=== PATIENT | male | born 1960 | race Two or more races ===

== ENCOUNTER 2020-04-10 11:31 | Emergency (ER) | payer OTHER ==
[~2020-04-10] VITALS: Ht 152.4 cm; Wt 63.5 kg
--- NOTE | 2020-04-10 12:11 | NUR ---
SEEN BY DR CASEY,GARCIA F16 INSERTED ASEPTICALLY,TOLERATED WELL
[2020-04-10] MEDS ORDERED: TAMSULOSIN 0.4 MG CAP.SR.24H PO ONE (12:30)
[2020-04-10] MEDS ORDERED: TAMSULOSIN 0.4 MG CAP.SR.24H ONE (12:32)
[2020-04-10 13:25] LABS: BILIRUBIN,URINE NEGATIVE (NEGATIVE); COLOR,URINE YELLOW (YELLOW); LEUKOCYTE ESTERASE ,URINE NEGATIVE (NEGATIVE); NITRITE, URINE NEGATIVE (NEGATIVE); PROTEIN,URINE NEGATIVE (NEGATIVE); UGLUCOSE NEGATIVE (NEGATIVE); UROBILINOGEN,URINE 0.2 EU/dL (0.2)
[2020-04-10 13:38] LABS: BACTERIA,URINE Rare /HPF (None Seen); RBC,URINE 21-50 /HPF (0-2); SQUAMOUS EPITHELIAL CELL,UR Rare /HPF (None Seen); WBC,URINE 0-2 /HPF (0-3)
--- NOTE | 2020-04-10 13:59 | NUR ---
CHANGED GARCIA CATHETER TO LEG BAG
[2020-04-10 14:29] VITALS: BP 127/104
--- NOTE | 2020-04-10 14:29 | NUR ---
Patient discharged to home in stable condition. Written and verbal after care instructions given. Patient verbalizes understanding of instruction.
== END 2020-04-10 14:30 | disposition home or self-care (01) ==
LOC: ER 11:34
DX: R33.9 Retention of urine, unspecified (principal); E78.00 Pure hypercholesterolemia, unspecified; Z86.73 Personal history of transient ischemic attack (TIA), and cerebral infarction without residual deficits
CPT/HCPCS: 81001; 87086-TC

== ENCOUNTER 2020-04-14 17:35 | Emergency (ER) | payer OTHER ==
[~2020-04-14] VITALS: Ht 175.3 cm; Wt 78.0 kg
[2020-04-14] MEDS ORDERED: LIDOCAINE 2% JEL UROJET 10 ML MM ONE ×2 (17:54→18:00)
--- NOTE | 2020-04-14 18:22 | NUR ---
GARCIA CATH INSERTED WEDNESDAY, PT C/O BLEEDING AND LEAKING ON THE CATHETER. PT AAOX4, VSS. RR EVEN & UNLABORED. PT SEEN & EVAL'D BY BRISEIDA NAJERA. WILL CONT TO MONITOR.
[2020-04-14 18:50] LABS: BASOPHILS # (AUTO) 0.1 /CMM (0.0-0.2); BASOPHILS % (AUTO) 0.6 % (0.0-2.0); EOSINOPHILS % (AUTO) 12.8 % (0.0-6.0); HEMATOCRIT 46 % (39-51); HEMOGLOBIN 15.3 g/dL (13.5-17.5); LYMPHOCYTES # (AUTO) 3.4 /CMM (0.8-4.8); LYMPHOCYTES % (AUTO) 30.4 % (20.0-44.0); MEAN CORPUSCULAR HGB CONC 34 g/dl (31.0-36.0); MEAN CORPUSCULAR VOLUME 86 fL (80-96); MONOCYTES # (AUTO) 0.8 /CMM (0.1-1.30); MONOCYTES % (AUTO) 7.2 % (2.0-12.0); NEUTROPHILS # (AUTO) 5.5 /CMM (1.8-8.9); PLATELET COUNT (AUTO) 188 /CMM (150-450); RED BLOOD CELL COUNT(AUTO) 5.33 MIL/uL (4.5-6.0); WHITE BLOOD COUNT (AUTO) 11.1 K/uL (4.3-11.0)
[2020-04-14 19:04] LABS: CALCIUM, SERUM 9.5 mg/dL (8.5-10.1); POTASSIUM 5.1 mmol/L (3.5-5.1)
[2020-04-14 19:10] LABS: ALBUMIN 3.9 g/dL (3.4-5.0); BILIRUBIN,TOTAL 0.4 mg/dL (0.2-1.0); TOTAL PROTEIN, SERUM 7.9 g/dL (6.4-8.2)
--- NOTE | 2020-04-14 19:32 | NUR ---
CHANGED GARCIA CATH TO 20FR & IRRIGATED WITH 500 ML OF STERILE WATER. BLOOD CLOTS CAME OUT & CONTINUOUS IRRIGATION UNTIL IT TURNED TO BRIGHT PINK, PT ROBERT WELL. BRISEIDA NAJERA MADE AWARE.
[2020-04-14 19:44] LABS: COLOR,URINE RED (YELLOW)
[2020-04-14 19:57] LABS: RBC,URINE TOO NUMEROUS TO COUN /HPF (0-2)
[2020-04-14 19:58] LABS: WBC,URINE 21-50 /HPF (0-3)
[2020-04-14 19:59] LABS: BACTERIA,URINE 2+ /HPF (None Seen); SQUAMOUS EPITHELIAL CELL,UR 0-2 /HPF (None Seen)
--- NOTE | 2020-04-14 20:21 | NUR ---
Patient discharged to home in stable condition. Written and verbal after care instructions given. Patient verbalizes understanding of instruction.
[2020-04-14 20:22] VITALS: BP 135/85
[2020-04-14] MEDS ORDERED: CEPHALEXIN MONOHYDRATE 500 MG CAPSULE PO ONE (20:30)
== END 2020-04-14 20:23 | disposition home or self-care (01) ==
LOC: ER 17:38
DX: T83.031A Leakage of indwelling urethral catheter, initial encounter (principal); N39.0 Urinary tract infection, site not specified; R31.9 Hematuria, unspecified; E78.00 Pure hypercholesterolemia, unspecified; Z86.73 Personal history of transient ischemic attack (TIA), and cerebral infarction without residual deficits
CPT/HCPCS: 36415; 51702; 80053; 81001; 85025; 87086; 99284; A4217; J3490

== ENCOUNTER 2021-09-29 09:10 | Inpatient (IN) | payer OTHER ==
[~2021-09-29] VITALS: Ht 170.2 cm; Wt 76.7 kg
[2021-09-29] MEDS ORDERED: CEFTRIAXONE 1GM BAG (ER ONLY) 50 ML IV ONE ×2 (09:19→09:30)
[2021-09-29] MEDS ORDERED: AMLO2.5T4 PO (09:20)
[2021-09-29] MEDS ORDERED: APIX5TAB PO (09:20)
[2021-09-29] MEDS ORDERED: TAMS-12 PO (09:20)
[2021-09-29] MEDS ORDERED: EZET10TA32 PO (09:20)
--- NOTE | 2021-09-29 09:20 | NUR ---
[id number] FROM HOME W/ C/O FEVER SINCE LAST NIGHT AND RLQ PAIN UPON WAKING UP THIS AM. PT A/O X4, VERBALLY RESPONSIVE. TO ER BED 7.
[2021-09-29] MEDS ORDERED: IV NS 0.9% 1,000 ML BAG IV ONE (09:30)
--- NOTE | 2021-09-29 09:30 | NUR ---
urine and covid swab collected and sent to lab.
--- NOTE | 2021-09-29 09:35 | NUR ---
IV LINE ESTABLISHED ON LAC #18, BLOOD DRAWN AND SENT TO LAB.
[2021-09-29 09:43] LABS: BASOPHILS % (AUTO) 0.2 % (0.0-2.0); HEMATOCRIT 44 % (39-51); HEMOGLOBIN 14.6 g/dL (13.5-17.5); LYMPHOCYTES # (AUTO) 1.9 K/uL (0.8-4.8); LYMPHOCYTES % (AUTO) 14.2 % (20.0-44.0); MEAN CORPUSCULAR HGB CONC 33 g/dl (31.0-36.0); MEAN CORPUSCULAR VOLUME 84 fL (80-96); MONOCYTES # (AUTO) 0.4 K/uL (0.1-1.30); MONOCYTES % (AUTO) 2.7 % (2.0-12.0); NEUTROPHILS # (AUTO) 10.9 K/uL (1.8-8.9); NEUTROPHILS % (AUTO) 79.9 % (43.0-81.0); PLATELET COUNT (AUTO) 190 K/uL (150-450); WHITE BLOOD COUNT (AUTO) 13.7 K/uL (4.3-11.0)
--- NOTE | 2021-09-29 09:45 | NUR ---
SEAMER OPERATOR AT BEDSIDE FOR XRAY
[2021-09-29 09:46] LABS: BILIRUBIN,URINE NEGATIVE (NEGATIVE); COLOR,URINE DARK YELLOW (YELLOW); LEUKOCYTE ESTERASE ,URINE NEGATIVE (NEGATIVE); NITRITE, URINE NEGATIVE (NEGATIVE); PH,URINE 5.5 (5.0-8.0); PROTEIN,URINE 100 mg/dl (NEGATIVE); UGLUCOSE NEGATIVE (NEGATIVE); UROBILINOGEN,URINE 0.2 EU/dL (0.2)
[2021-09-29 10:05] LABS: CALCIUM, SERUM 8.4 mg/dL (8.5-10.1); CARBON DIOXIDE 23 mmol/L (21-32); CHLORIDE 101 mmol/L (98-107); CREATININE 1.1 mg/dL (0.6-1.3); GLUCOSE 139 mg/dL (74-106); POTASSIUM 3.9 mmol/L (3.5-5.1); SODIUM SERUM 136 mmol/L (136-145); UREA NITROGEN, BLOOD 21 mg/dL (7-18)
[2021-09-29 10:11] LABS: ALANINE AMINOTRANSFERASE 24 U/L (12-78); ALBUMIN 3.6 g/dL (3.4-5.0); ALKALINE PHOSPHATASE 98 U/L (46-116); ASPARTATE AMINOTRANSFERASE 23 U/L (15-37); BILIRUBIN,DIRECT 0.2 mg/dL (0.0-0.2); BILIRUBIN,TOTAL 1.3 mg/dL (0.2-1.0); TOTAL PROTEIN, SERUM 7.6 g/dL (6.4-8.2)
--- NOTE | 2021-09-29 10:36 | NUR ---
DR. HILL MADE AWARE OF PT'S LAC ACID 3.1.
[2021-09-29 10:37] LABS: BACTERIA,URINE None seen /HPF (None Seen); RBC,URINE 21-50 /HPF (0-2); SQUAMOUS EPITHELIAL CELL,UR Rare /HPF (None Seen)
--- NOTE | 2021-09-29 10:46 | NUR ---
CALLED NURSING SUP REGARDING PT BED
--- NOTE | 2021-09-29 10:50 | NUR ---
room 108
--- NOTE | 2021-09-29 11:01 | NUR ---
report given to Alexsandra EISENBERG to continue care.
--- NOTE | 2021-09-29 11:40 | NUR ---
RECEIVED A KHMER SPEAKING PATIENT FROM ED VIA [facility]. PATIENT'S ADMITTING DIAGNOSES ARE SEPSIS AND NSTEMI. PATIENT IS ON RA WITH OXYGEN SATURATION OF 98%. BREATHING EVEN AND UNLABORED. NO SOB NOTED. PATIENT IS ALERT AND ORIENTED X 4. ON SR WITH HR OF 68. IV ACCESS NOTED ON LEFT AC # 18, PATENT, INTAC, FLUSHING WELL. NO S/S OF INFILTRATION. SKIN IS INTACT, WARM AND DRY TO TOUCH. ALL SAFETY MEASURES IN PLACE. BED LOCKED AND IN LOWEST POSITION. CALL LIGHT WITHIN REACH AND HOB ELEVATED. WILL CONTINUE TO MONITOR THROUGHOUT SHIFT
[2021-09-29 12:00] VITALS: BP 110/58
[2021-09-29] MEDS ORDERED: ONDANSETRON HCL/PF 4 MG/2 ML VIAL IVP PRN (14:00)
[2021-09-29] MEDS ORDERED: Z GUARD REMEDY 4 OZ OINT TP PRN (14:00)
[2021-09-29] MEDS ORDERED: MAGNESIUM HYDROXIDE 30 ML UDC PO PRN (14:00)
[2021-09-29] MEDS ORDERED: ZOLPIDEM TARTRATE 5 MG TABLET PO PRN (14:00)
[2021-09-29] MEDS ORDERED: HYDROCODONE/APAP 5/325MG TABLET PO PRN (14:00)
[2021-09-29] MEDS ORDERED: MAG HYDROX/AL HYDROX/SIMETH 30 ML UDC PO PRN (14:00)
[2021-09-29 16:00] VITALS: BP 118/54
[2021-09-29] MEDS: IV NS 0.9% 1,000 ML IV PRN (17:51)
--- NOTE | 2021-09-29 19:02 | NUR ---
CLOSING NOTES: PATIENT IN BED, AWAKE ALERT AND ORIENTED X 4 WITH AT BEDSIDE. PATIENT DENIES ANY PAIN OR DISCOMFORT AT THIS TIME. ON RA WITH OXYGEN SATURATION OF 95%, NO S/S OF SOB, AND NO RESPIRATORY DISTRESS NOTED. IV LINE ON LEFT AC INFUSING WITH NS @ 125 ML/HR, NO INFILTRATION NOTED ON THE SITE. ALL NEEDS ANTICIPATED. KEPT PATIENT CLEAN AND DRY AT ALL TIMES. SAFETY MEASURES IN PLACE. SR UP, HOB ELEVATED, CALL LIGHT WITHIN REACH. WILL ENDORSE TO PSYCHOLOGIST PERSONNEL FOR CRISPIN.
--- NOTE | 2021-09-29 19:31 | NUR ---
INTERNET TECHNOLOGY MANAGER OPENING NOTES: RECEIVED PATIENT IN BED, AWAKE, ALERT, AND ORIENTED X 4 HEBREW SPEAKING. ABLE TO MAKE NEEDS KNOWN, PATIENT DENIES ANY PAIN OR DISCOMFORT AT THIS TIME. ON RA, TOLERATING WELL, BREATHING EVEN AND UNLABORED AND NO RESPIRATORY DISTRESS NOTED. IV LINE ON LEFT AC INFUSING WITH NS @ 125 ML/HR, NO INFILTRATION NOTED ON THE SITE. ALL NEEDS ANTICIPATED. SAFETY MEASURES IN PLACE, HOB ELEVATED, CALL LIGHT WITHIN REACH. BED IN LOWEST AND LOCKED POSITION, WILL CONTINUE TO MONITOR THROUGHOUT THE SHIFT.
[2021-09-29 20:00] VITALS: BP 148/60
[2021-09-29] MEDS: ASPIRIN EC 325 MG TABLET.DR PO SCH (20:29)
[2021-09-29] MEDS: ACETAMINOPHEN 325 MG TABLET PO PRN (20:29)
[2021-09-29] MEDS: METOPROLOL TARTRATE 25 MG TABLET PO SCH (20:30)
[2021-09-29] MEDS: ENOXAPARIN SODIUM 80 MG/0.8 ML DISP.SYRIN SQ SCH (20:38)
--- NOTE | 2021-09-29 21:30 | NUR ---
2129 Dr. Hidalgo came and examined patient with new order made.
--- NOTE | 2021-09-29 21:30 | NUR ---
RN NOTE DR ROSANGELA SIDDIQUI (UROLOGIST) AT BEDSIDE, DISCUSSED TX PLAN TO PT, NNO, CONTINUE MONITORING PT I&O.
[2021-09-29] MEDS ORDERED: GENTAMICIN 80 MG/2 ML VIAL IV SCH (22:00)
[2021-09-29] MEDS ORDERED: GENTAMICIN 80 MG in IV D5W 50 ML IV ONE (22:00)
[2021-09-29] MEDS ORDERED: GENTAMICIN 80 MG/2 ML VIAL ONE (22:58)
[2021-09-30] VITALS: BP 111/57
[2021-09-30 04:00] VITALS: BP 128/66
[2021-09-30] MEDS: IV NS 0.9% 1,000 ML IV PRN (04:21)
--- NOTE | 2021-09-30 05:11 | NUR ---
RN NOTE OBTAINED NEW IV ACCESS ON RFA #22G. RUNNING NS AT 125 ML/HR.
--- NOTE | 2021-09-30 06:49 | NUR ---
RENTAL CAR FERRY DRIVER CLOSING NOTES: PATIENT RESTING IN BED. A/O X 4 FRISIAN SPEAKING. ABLE TO MAKE NEEDS KNOWN, PATIENT DENIES ANY PAIN OR DISCOMFORT AT THIS TIME. ON RA, TOLERATING WELL, BREATHING EVEN AND UNLABORED AND NO RESPIRATORY DISTRESS NOTED. IV ACCESS ON LEFT AC AT RFA #22G INFUSING WITH NS @ 125 ML/HR, NO INFILTRATION NOTED ON THE SITE. ALL NEEDS ANTICIPATED. ALL DUE MEDS GIVEN, SAFETY MEASURES IN PLACE, HOB ELEVATED, CALL LIGHT WITHIN REACH. BED IN LOWEST AND LOCKED POSITION, WILL ENDORSE TO AM SHIFT NURSE.
[2021-09-30 07:28] LABS: BASOPHILS % (AUTO) 0.4 % (0.0-2.0); EOSINOPHILS % (AUTO) 3.8 % (0.0-6.0); HEMATOCRIT 40 % (39-51); HEMOGLOBIN 13.2 g/dL (13.5-17.5); LYMPHOCYTES # (AUTO) 1.7 K/uL (0.8-4.8); LYMPHOCYTES % (AUTO) 12.9 % (20.0-44.0); MEAN CORPUSCULAR HGB CONC 33 g/dl (31.0-36.0); MEAN CORPUSCULAR VOLUME 84 fL (80-96); MONOCYTES % (AUTO) 7.9 % (2.0-12.0); NEUTROPHILS # (AUTO) 9.8 K/uL (1.8-8.9); PLATELET COUNT (AUTO) 160 K/uL (150-450); RED BLOOD CELL COUNT(AUTO) 4.71 MIL/uL (4.5-6.0)
--- NOTE | 2021-09-30 07:32 | NUR ---
RN OPENING NOTES: PATIENT RESTING IN BED. A/O X 4 VIETNAMESE SPEAKING. ABLE TO MAKE NEEDS KNOWN, PATIENT DENIES ANY PAIN OR DISCOMFORT AT THIS TIME. ON RA, TOLERATING WELL, BREATHING EVEN AND UNLABORED AND NO RESPIRATORY DISTRESS NOTED. ATTACHED TO EXTERNAL MONITOR, READING SINUS RHYTHM TO SINUS STEFANI. IV ACCESS ON LEFT AC AT RFA #22G INFUSING WITH NS @ 125 ML/HR, NO INFILTRATION NOTED ON THE SITE. SAFETY MEASURES IN PLACE, HOB ELEVATED, CALL LIGHT WITHIN REACH. BED IN LOWEST AND LOCKED POSITION, WILL CONTINUE PLAN OF CARE AND ANTICIPATE NEEDS.
[2021-09-30 08:00] VITALS: BP 136/65
[2021-09-30] MEDS: GENTAMICIN 80 MG in IV D5W 50 ML IV SCH ×3 (08:26→23:08)
[2021-09-30] MEDS: ASPIRIN EC 325 MG TABLET.DR PO SCH (08:26)
[2021-09-30] MEDS: EZETIMIBE 10 MG TABLET PO SCH (08:27)
[2021-09-30] MEDS: PANTOPRAZOLE 40 MG TABLET.DR PO SCH (08:27)
[2021-09-30] MEDS: AMLODIPINE BESYLATE 2.5 MG TABLET PO SCH (08:27)
[2021-09-30] MEDS: METOPROLOL TARTRATE 25 MG TABLET PO SCH ×2 (08:27→20:30)
[2021-09-30] MEDS: TAMSULOSIN 0.4 MG CAP.SR.24H PO SCH (08:27)
[2021-09-30] MEDS: ENOXAPARIN SODIUM 80 MG/0.8 ML DISP.SYRIN SQ SCH (08:36)
[2021-09-30 09:01] LABS: CALCIUM, SERUM 8.2 mg/dL (8.5-10.1); CREATININE 0.8 mg/dL (0.6-1.3); MAGNESIUM 1.8 mg/dL (1.8-2.4); PHOSPHORUS 2.8 mg/dL (2.5-4.9); POTASSIUM 3.8 mmol/L (3.5-5.1)
[2021-09-30] MEDS: CEFTRIAXONE 1 G in IV D5W 50 ML IV SCH (09:23)
[2021-09-30 10:21] LABS: THYROID STIMULATING HORMONE 1.063 uIU/mL (0.358-3.74)
[2021-09-30 12:00] VITALS: BP 133/65
[2021-09-30] MEDS: VANCOMYCIN 1.25 GM in IV D5W 250 ML IV SCH (13:53)
[2021-09-30] MEDS: ACETAMINOPHEN 325 MG TABLET PO PRN (13:54)
[2021-09-30 16:00] VITALS: BP 140/64
--- NOTE | 2021-09-30 17:02 | NUR ---
dr. drew aware of elevated trop ,for heart cath tmrw and will not give lovenox dose tonite and am dose per dr. drew.
--- NOTE | 2021-09-30 18:31 | NUR ---
RN CLOSING NOTES: PATIENT RESTING IN BED. A/O X 4 UPPER SORBIAN SPEAKING. ABLE TO MAKE NEEDS KNOWN, PATIENT DENIES ANY PAIN OR DISCOMFORT AT THIS TIME. ON RA, TOLERATING WELL, BREATHING EVEN AND UNLABORED AND NO RESPIRATORY DISTRESS NOTED. ATTACHED TO EXTERNAL MONITOR, READING SINUS RHYTHM TO SINUS STEFANI. IV ACCESS ON LEFT AC AT RFA #22G INFUSING WITH NS @ 125 ML/HR, NO INFILTRATION NOTED ON THE SITE. SAFETY MEASURES IN PLACE, HOB ELEVATED, CALL LIGHT WITHIN REACH. BED IN LOWEST AND LOCKED POSITION. ALL DUE MEDICATIONS GIVEN, KEPT CLEAN AND DRY THROUGHOUT SHIFT. NPO STATUS NOTED FOR PROCEDURE TOMORROW. WILL ENDORSE TO NIGHTSHIFT RN FOR CONTINUATION OF CARE.
--- NOTE | 2021-09-30 19:31 | NUR ---
FLOW TRADER OPENING NOTE RECEIVED PATIENT RESTING IN BED. A/O X 4, ZIMBABWEAN SPEAKING, AND ABLE TO MAKE NEEDS KNOWN. PT STABLE ON RA. NO SOB OR S/S OF RESPIRATORY DISTRESS. BREATHING EVEN AND UNLABORED. ON EXTERNAL HOSPICE ENTRANCE ATTENDANT READING SR 62. IV ACCESS LAC 18 GAUGE AND RFA 22 GAUGE RUNNING NS @ 125 ML/HR. SAFETY PRECAUTIONS IN PLACE. BED IN LOWEST LOCKED POSITION, HOB ELEVATED, SIDE RAILS UP X2, AND CALL LIGHT AND TABLE WITHIN REACH. ALL NEEDS MET AT THIS TIME.
[2021-09-30 20:00] VITALS: BP 109/60
[2021-10-01] VITALS: BP 103/50
--- NOTE | 2021-10-01 00:08 | NUR ---
VAULT PERSON OPENING NOTES: RECEIVED PATIENT IN BED, AWAKE, ALERT, AND ORIENTED X 4 ZIMBABWEAN SPEAKING. ABLE TO MAKE NEEDS KNOWN, PATIENT DENIES ANY PAIN OR DISCOMFORT AT THIS TIME. ON RA, TOLERATING WELL, BREATHING EVEN AND UNLABORED AND NO RESPIRATORY DISTRESS NOTED. IV LINE ON L WRIST #18G AND RGA #18G INFUSING WITH NS @ 125 ML/HR, NO INFILTRATION NOTED ON THE SITE. ALL NEEDS ANTICIPATED. SAFETY MEASURES IN PLACE, HOB ELEVATED, CALL LIGHT WITHIN REACH. BED IN LOWEST AND LOCKED POSITION, WILL CONTINUE TO MONITOR THROUGHOUT THE SHIFT. Addendum: 10/02/21 at 0620 by SWATI VAUGHN RN wrong time
[2021-10-01] MEDS: VANCOMYCIN 1.25 GM in IV D5W 250 ML IV SCH ×2 (01:18→14:09)
[2021-10-01] MEDS: IV NS 0.9% 1,000 ML IV PRN ×2 (03:59→23:01)
[2021-10-01 04:00] VITALS: BP 130/74
--- NOTE | 2021-10-01 06:32 | NUR ---
BILLET ASSEMBLER CLOSING NOTE PATIENT RESTING IN BED. A/O X 4, SWEDISH SPEAKING, AND ABLE TO MAKE NEEDS KNOWN. PT STABLE ON RA. NO SOB OR S/S OF RESPIRATORY DISTRESS. BREATHING EVEN AND UNLABORED. ON EXTERNAL STRUCTURAL ENGINEER READING SB 40. IV ACCESS LAC 18 GAUGE AND RFA 22 GAUGE RUNNING NS @ 125 ML/HR. ALL DUE MEDS GIVEN ORDERED. KEPT NPO FOR LEFT HEART CATH TODAY. SAFETY PRECAUTIONS IN PLACE AT ALL TIMES. BED IN LOWEST LOCKED POSITION, HOB ELEVATED, SIDE RAILS UP X2, AND CALL LIGHT AND TABLE WITHIN REACH. ALL NEEDS MET AT THIS TIME AND WILL ENDORSE TO ONCOMING NURSE FOR CRISPIN.
[2021-10-01 07:00] LABS: CALCIUM, SERUM 8.2 mg/dL (8.5-10.1); CREATININE 0.7 mg/dL (0.6-1.3); POTASSIUM 3.9 mmol/L (3.5-5.1)
--- NOTE | 2021-10-01 07:20 | NUR ---
BOOMSWING OPERATOR OPENING NOTE RECEIVED PATIENT RESTING IN BED. A/O X 4, URUGUAYAN SPEAKING, AND ABLE TO MAKE NEEDS KNOWN. ON RA. NO SOB OR S/S OF RESPIRATORY DISTRESS. BREATHING EVEN AND UNLABORED. ON EXTERNAL COUNTERSINKER BALANCE SCREW HOLE . IV ACCESS LAC 18 GAUGE AND RFA 22 GAUGE RUNNING NS @ 125 ML/HR. SAFETY PRECAUTIONS IN PLACE. BED IN LOWEST LOCKED POSITION, HOB ELEVATED, SIDE RAILS UP X2, AND CALL LIGHT AND TABLE WITHIN REACH.
[2021-10-01] MEDS: PANTOPRAZOLE 40 MG TABLET.DR PO SCH (07:30)
[2021-10-01 08:00] VITALS: BP 130/68
[2021-10-01] MEDS: EZETIMIBE 10 MG TABLET PO SCH (08:32)
[2021-10-01] MEDS: AMLODIPINE BESYLATE 2.5 MG TABLET PO SCH (08:32)
[2021-10-01] MEDS: GENTAMICIN 80 MG in IV D5W 50 ML IV SCH ×3 (08:32→23:03)
[2021-10-01] MEDS: TAMSULOSIN 0.4 MG CAP.SR.24H PO SCH (08:32)
[2021-10-01] MEDS: ASPIRIN EC 325 MG TABLET.DR PO SCH (08:32)
[2021-10-01] MEDS: METOPROLOL TARTRATE 25 MG TABLET PO SCH ×2 (08:34→21:00)
[2021-10-01 10:07] LABS: BASOPHILS % (AUTO) 0.4 % (0.0-2.0); EOSINOPHILS % (AUTO) 5.1 % (0.0-6.0); HEMATOCRIT 39 % (39-51); LYMPHOCYTES % (AUTO) 18.4 % (20.0-44.0); MEAN CORPUSCULAR HGB CONC 33 g/dl (31.0-36.0); MEAN CORPUSCULAR VOLUME 85 fL (80-96); MONOCYTES # (AUTO) 1.2 K/uL (0.1-1.30); MONOCYTES % (AUTO) 10.9 % (2.0-12.0); NEUTROPHILS # (AUTO) 6.9 K/uL (1.8-8.9); NEUTROPHILS % (AUTO) 65.2 % (43.0-81.0); PLATELET COUNT (AUTO) 168 K/uL (150-450); RED BLOOD CELL COUNT(AUTO) 4.64 MIL/uL (4.5-6.0); WHITE BLOOD COUNT (AUTO) 10.6 K/uL (4.3-11.0)
[2021-10-01] MEDS: CEFTRIAXONE 1 G in IV D5W 50 ML IV SCH (10:40)
[2021-10-01 12:00] VITALS: BP 132/67
[2021-10-01] MEDS ORDERED: MIDAZOLAM HCL 2 MG/2ML VIAL ONE (12:18)
[2021-10-01] MEDS ORDERED: IV NS 0.9% 1,000 ML ONE (12:18)
[2021-10-01] MEDS ORDERED: LIDOCAINE HCL/MPF 1% 30 ML VIAL IJ ONE (12:18)
[2021-10-01] MEDS ORDERED: IV SET PRIMARY PUMP SET 1 EA INFUS.SET MC ONE (12:18)
[2021-10-01] MEDS ORDERED: FENTANYL PF 100MCG/2ML AMPUL ONE (12:18)
[2021-10-01] MEDS ORDERED: IODIXANOL 150 ML IV ONE (12:29)
[2021-10-01 16:00] VITALS: BP 114/65
--- NOTE | 2021-10-01 18:45 | NUR ---
SPIRAL BINDER CLOSING NOTE PATIENT RESTING IN BED. A/O X 4, MONGOLIAN SPEAKING, AND ABLE TO MAKE NEEDS KNOWN. PT STABLE ON RA. NO SOB OR S/S OF RESPIRATORY DISTRESS. BREATHING EVEN AND UNLABORED. ON EXTERNAL DIRECTOR OF PRODUCT DESIGN READING SB . IV ACCESS LAC 18 GAUGE AND RFA 22 GAUGE RUNNING NS @ 125 ML/HR. ALL DUE MEDS GIVEN ORDERED.. SAFETY PRECAUTIONS IN PLACE AT ALL TIMES. BED IN LOWEST LOCKED POSITION, HOB ELEVATED, SIDE RAILS UP X2, AND CALL LIGHT AND TABLE WITHIN REACH. ALL NEEDS MET AT THIS TIME AND WILL ENDORSE TO ONCOMING NURSE FOR CRISPIN.
--- NOTE | 2021-10-01 19:15 | NUR ---
WELDING MACHINE OPERATOR ELECTRON BEAM OPENING NOTES: RECEIVED PATIENT IN BED, AWAKE, ALERT, AND ORIENTED X 4 HUNGARIAN SPEAKING. ABLE TO MAKE NEEDS KNOWN, PATIENT DENIES ANY PAIN OR DISCOMFORT AT THIS TIME. ON RA, TOLERATING WELL, BREATHING EVEN AND UNLABORED AND NO RESPIRATORY DISTRESS NOTED. IV LINE ON L WRIST #18G AND RGA #18G INFUSING WITH NS @ 125 ML/HR, NO INFILTRATION NOTED ON THE SITE. ALL NEEDS ANTICIPATED. SAFETY MEASURES IN PLACE, HOB ELEVATED, CALL LIGHT WITHIN REACH. BED IN LOWEST AND LOCKED POSITION, WILL CONTINUE TO MONITOR THROUGHOUT THE SHIFT.
[2021-10-01 20:00] VITALS: BP 122/69
[2021-10-02] VITALS: BP 127/77
[2021-10-02] MEDS: VANCOMYCIN 1.25 GM in IV D5W 250 ML IV SCH (02:43)
[2021-10-02 04:00] VITALS: BP 126/66
[2021-10-02 06:38] LABS: BASOPHILS % (AUTO) 0.5 % (0.0-2.0); HEMATOCRIT 37 % (39-51); HEMOGLOBIN 12.8 g/dL (13.5-17.5); LYMPHOCYTES # (AUTO) 1.9 K/uL (0.8-4.8); LYMPHOCYTES % (AUTO) 23.7 % (20.0-44.0); MEAN CORPUSCULAR HGB CONC 35 g/dl (31.0-36.0); MEAN CORPUSCULAR VOLUME 83 fL (80-96); MONOCYTES # (AUTO) 0.8 K/uL (0.1-1.30); NEUTROPHILS # (AUTO) 4.4 K/uL (1.8-8.9); NEUTROPHILS % (AUTO) 55.8 % (43.0-81.0); PLATELET COUNT (AUTO) 186 K/uL (150-450); RED BLOOD CELL COUNT(AUTO) 4.49 MIL/uL (4.5-6.0); WHITE BLOOD COUNT (AUTO) 7.9 K/uL (4.3-11.0)
--- NOTE | 2021-10-02 06:53 | NUR ---
TREE FELLER CLOSING NOTES: NO SIGNIFICANT CHANGES THROUGHOUT THE SHIFT, PATIENT IN BED, A/O X4, BAHAMIAN SPEAKING. ABLE TO MAKE NEEDS KNOWN, PATIENT DENIES ANY PAIN OR DISCOMFORT AT THIS TIME. ON RA TOLERATING WELL, BREATHING EVEN AND UNLABORED AND NO RESPIRATORY DISTRESS NOTED. IV LINE ON L WRIST #18G AND RFA #18G INFUSING WITH NS @ 125 ML/HR, NO INFILTRATION NOTED ON THE SITE. ALL NEEDS ANTICIPATED. SAFETY MEASURES IN PLACE, HOB ELEVATED, ALL DUE MEDS GIVEN, KEPT DRY AND CLEAN, CALL LIGHT WITHIN REACH. BED IN LOWEST AND LOCKED POSITION, WILL ENDORSE TO AM SHIFT NURSE.
[2021-10-02 06:57] LABS: CALCIUM, SERUM 8.1 mg/dL (8.5-10.1); CREATININE 0.9 mg/dL (0.6-1.3); PHOSPHORUS 3.8 mg/dL (2.5-4.9); POTASSIUM 4.2 mmol/L (3.5-5.1)
--- NOTE | 2021-10-02 07:20 | NUR ---
ROOF TECHNICIAN OPENING NOTE RECEIVED PATIENT AWAKE IN BED. A/O X 4, TANZANIAN SPEAKING, AND ABLE TO MAKE NEEDS KNOWN. ON RA, TOLERATING WELL. NO SOB OR S/S OF RESPIRATORY DISTRESS. BREATHING EVEN AND UNLABORED. ON EXTERNAL BOND TRADER READING SB WITH HR OF 43. IV ACCESS LAC 18 GAUGE AND RFA 22 GAUGE INFUSING NS @ 125 ML/HR. NO INFILTRATION NOTED. ALL SAFETY PRECAUTIONS IN PLACE. BED IN LOWEST LOCKED POSITION, HOB ELEVATED, SIDE RAILS UP X2, AND CALL LIGHT AND TABLE WITHIN REACH. WILL CONTINUE TO MONITOR AND REASSESS PATIENT FOR ANY CHANGES THROUGHOUT SHIFT.
[2021-10-02 08:00] VITALS: BP 131/68
[2021-10-02] MEDS: METOPROLOL TARTRATE 25 MG TABLET PO SCH ×2 (09:00→21:00)
[2021-10-02] MEDS: AMLODIPINE BESYLATE 2.5 MG TABLET PO SCH (09:03)
[2021-10-02] MEDS: EZETIMIBE 10 MG TABLET PO SCH (09:03)
[2021-10-02] MEDS: ASPIRIN EC 325 MG TABLET.DR PO SCH (09:03)
[2021-10-02] MEDS: TAMSULOSIN 0.4 MG CAP.SR.24H PO SCH ×2 (09:03→17:23)
[2021-10-02] MEDS: CEFTRIAXONE 1 G in IV D5W 50 ML IV SCH (09:04)
[2021-10-02] MEDS: PANTOPRAZOLE 40 MG TABLET.DR PO SCH (09:06)
[2021-10-02] MEDS: GENTAMICIN 80 MG in IV D5W 50 ML IV SCH ×2 (10:32→18:39)
[2021-10-02] MEDS: IV NS 0.9% 1,000 ML IV PRN (11:24)
[2021-10-02 12:00] VITALS: BP 131/84
[2021-10-02 16:00] VITALS: BP 115/52
[2021-10-02] MEDS: FUROSEMIDE 20 MG TABLET PO SCH (18:39)
--- NOTE | 2021-10-02 18:49 | NUR ---
OIM CONSULTANT CLOSING NOTES NO SIGNIFICANT CHANGES ON PATIENT CONDITION THROUGHOUT SHIFT. PATIENT AWAKE IN BED. A/O X 4, SRI LANKAN SPEAKING, WITH AT BEDSIDE. ON RA, TOLERATING WELL. NO SOB OR S/S OF RESPIRATORY DISTRESS. BREATHING EVEN AND UNLABORED. IV ACCESS RIGHT WRIST AND LEFT WRIST 18 GAUGE INFUSING NS @ 125 ML/HR. NO INFILTRATION NOTED. ALL DUE MEDS GIVEN ORDERED. KEPT PATIENT CLEAN DRY AND COMFORTABLE AT ALL TIMES. ALL NEEDS ANTICIPATED. ALL SAFETY PRECAUTIONS IN PLACE. BED IN LOWEST LOCKED POSITION, HOB ELEVATED, SIDE RAILS UP X2, AND CALL LIGHT AND TABLE WITHIN REACH. WILL ENDORSE TO FLOORING MACHINE OPERATOR NURSE FOR CONTINUITY OF CARE.
--- NOTE | 2021-10-02 19:30 | NUR ---
CAN FEEDER OPENING NOTE RECEIVED PATIENT IN BED. A/OX4 ROMANIAN SPEAKING. 1 FAMILY MEMBER AT BED SIDE. NO S/S OF APPARENT DISTRESS IN ROOM AIR. DENIES ANY PAIN AT THIS TIME. TELE MONITOR READING SB. IV NS RUNNING @125MLS/HR. ORIENTED WITH THE USE OF CALL LIGHT. SAFETY IN PLACE. WILL CONTINUE WITH PATIENT'S PLAN OF CARE.
[2021-10-02 20:00] VITALS: BP 112/59
--- NOTE | 2021-10-02 21:45 | NUR ---
COOPER BUNDY D/T LOW HR. BP 112/ 59, HR 54.
[2021-10-03] VITALS: BP 113/58
[2021-10-03] MEDS: GENTAMICIN 80 MG in IV D5W 50 ML IV SCH ×2 (01:58→10:33)
[2021-10-03 04:00] VITALS: BP 120/57
[2021-10-03] MEDS: IV NS 0.9% 1,000 ML IV PRN (05:21)
--- NOTE | 2021-10-03 07:28 | NUR ---
KILN DOOR REPAIRER CLOSING NOTE NEEDS ATTENDED. TELE MONITOR READING SR THIS AM WITH 72 BPM. REPORT GIVEN TO ELGIN INFANTE FOR CONTINUITY OF CARE.
[2021-10-03 07:48] LABS: CALCIUM, SERUM 8.2 mg/dL (8.5-10.1); CREATININE 0.9 mg/dL (0.6-1.3); POTASSIUM 3.9 mmol/L (3.5-5.1)
[2021-10-03 08:00] VITALS: BP 117/65
[2021-10-03] MEDS: EZETIMIBE 10 MG TABLET PO SCH (08:42)
[2021-10-03] MEDS: AMLODIPINE BESYLATE 2.5 MG TABLET PO SCH (08:42)
[2021-10-03] MEDS: FUROSEMIDE 20 MG TABLET PO SCH (08:43)
[2021-10-03] MEDS: PANTOPRAZOLE 40 MG TABLET.DR PO SCH (08:43)
[2021-10-03] MEDS: METOPROLOL TARTRATE 25 MG TABLET PO SCH (08:43)
[2021-10-03] MEDS: TAMSULOSIN 0.4 MG CAP.SR.24H PO SCH (08:45)
[2021-10-03] MEDS ORDERED: METO25TA20 PO (08:52)
[2021-10-03] MEDS ORDERED: Tamsulosin PO (08:52)
[2021-10-03] MEDS ORDERED: FURO20TA4 PO (08:52)
[2021-10-03] MEDS ORDERED: TAMS-12 PO (08:54)
[2021-10-03 12:00] VITALS: BP 115/55
== END 2021-10-03 13:28 | disposition home or self-care (01) | DRG 720 ==
LOC: ER 09:12 → TELE1 11:25
PROVIDERS: ADMIT Student in an Organized Health Care Education/Training Program; ATTEND Internal Medicine
PROC: 4A023N7 Measurement of Cardiac Sampling and Pressure, Left Heart, Percutaneous Approach (ICD-10-PCS; principal; 2021-10-01)
PROC: B211YZZ Fluoroscopy of Multiple Coronary Arteries using Other Contrast (ICD-10-PCS; 2021-10-01)
DX: T81.44XA Sepsis following a procedure, initial encounter (principal); I21.4 Non-ST elevation (NSTEMI) myocardial infarction; I50.32 Chronic diastolic (congestive) heart failure; I11.0 Hypertensive heart disease with heart failure; N39.0 Urinary tract infection, site not specified; E86.0 Dehydration; I25.10 Atherosclerotic heart disease of native coronary artery without angina pectoris; Z86.73 Personal history of transient ischemic attack (TIA), and cerebral infarction without residual deficits; R53.1 Weakness; R31.9 Hematuria, unspecified; E78.5 Hyperlipidemia, unspecified; Z95.5 Presence of coronary angioplasty implant and graft; Y84.8 Other medical procedures as the cause of abnormal reaction of the patient, or of later complication, without mention of misadventure at the time of the procedure; Y92.89 Other specified places as the place of occurrence of the external cause; Z79.01 Long term (current) use of anticoagulants
CPT/HCPCS: 36415; 71045-TC; 80048-TC; 80061-TC; 80076-TC; 80170-TC; 80202-TC; 81001; 83605-TC; 83735-TC; 84100-TC; 84443-TC; 84484-TC; 85025-TC; 85730-TC; 87040-TC; 87081-TC; 87086-TC; 93307-TC; C1887; C1894; C9803; G0378; G0500; J0696; J1580; J1644; J1650; J2250; J3010; J3370; J3490; J7030; J7060; Q9967

== ENCOUNTER 2021-10-11 15:04 | Emergency (ER) | payer OTHER ==
[~2021-10-11] VITALS: Ht 165.1 cm; Wt 63.5 kg
[~2021-10-11 15:04] MED LIST: AMLO2.5T4 PO; APIX5TAB PO; EZET10TA32 PO; FURO20TA4 PO; METO25TA20 PO; TAMS-12 PO
--- NOTE | 2021-10-11 16:15 | NUR ---
iv line started blood drawn and sent to lab.
--- NOTE | 2021-10-11 16:27 | NUR ---
URINE COLLECTED AND SENT TO LAB
[2021-10-11 16:45] LABS: BASOPHILS # (AUTO) 0.1 K/uL (0.0-0.2); BASOPHILS % (AUTO) 0.3 % (0.0-2.0); EOSINOPHILS % (AUTO) 5.9 % (0.0-6.0); HEMATOCRIT 48 % (39-51); HEMOGLOBIN 16.2 g/dL (13.5-17.5); LYMPHOCYTES # (AUTO) 2.2 K/uL (0.8-4.8); LYMPHOCYTES % (AUTO) 13.3 % (20.0-44.0); MEAN CORPUSCULAR HGB CONC 34 g/dl (31.0-36.0); MEAN CORPUSCULAR VOLUME 84 fL (80-96); MONOCYTES # (AUTO) 0.7 K/uL (0.1-1.30); MONOCYTES % (AUTO) 4.2 % (2.0-12.0); NEUTROPHILS # (AUTO) 12.4 K/uL (1.8-8.9); NEUTROPHILS % (AUTO) 76.3 % (43.0-81.0); PLATELET COUNT (AUTO) 379 K/uL (150-450); RED BLOOD CELL COUNT(AUTO) 5.75 MIL/uL (4.5-6.0); WHITE BLOOD COUNT (AUTO) 16.3 K/uL (4.3-11.0)
[2021-10-11 16:59] LABS: CALCIUM, SERUM 9.3 mg/dL (8.5-10.1); POTASSIUM 4.2 mmol/L (3.5-5.1)
[2021-10-11] MEDS ORDERED: MORPHINE SULFATE INJ 2 MG/ML DISP.SYRIN IV ONE (17:00)
[2021-10-11] MEDS ORDERED: ONDANSETRON HCL/PF 4 MG/2 ML VIAL IV ONE (17:00)
[2021-10-11 17:02] LABS: ALBUMIN 4.3 g/dL (3.4-5.0); BILIRUBIN,DIRECT 0.1 mg/dL (0.0-0.2); BILIRUBIN,TOTAL 0.5 mg/dL (0.2-1.0); TOTAL PROTEIN, SERUM 9.1 g/dL (6.4-8.2)
[2021-10-11] MEDS ORDERED: ONDANSETRON HCL/PF 4 MG/2 ML VIAL ONE (17:02)
[2021-10-11] MEDS ORDERED: MORPHINE SULFATE INJ 4 MG/ML DISP.SYRIN ONE (17:02)
[2021-10-11 17:03] LABS: BILIRUBIN,URINE NEGATIVE (NEGATIVE); COLOR,URINE YELLOW (YELLOW); LEUKOCYTE ESTERASE ,URINE NEGATIVE (NEGATIVE); NITRITE, URINE NEGATIVE (NEGATIVE); PH,URINE 5.5 (5.0-8.0); PROTEIN,URINE TRACE mg/dl (NEGATIVE); UGLUCOSE NEGATIVE (NEGATIVE); UROBILINOGEN,URINE 0.2 EU/dL (0.2)
[2021-10-11 17:08] LABS: BACTERIA,URINE None seen /HPF (None Seen); MUCUS,URINE Moderate /LPF (None Seen); RBC,URINE 0-2 /HPF (0-2); SQUAMOUS EPITHELIAL CELL,UR 0-2 /HPF (None Seen); WBC,URINE 0-2 /HPF (0-3)
[2021-10-11] MEDS ORDERED: LEVO750T46 PO (19:18)
[2021-10-11] MEDS ORDERED: HYDR-4209 PO (19:19)
--- NOTE | 2021-10-11 19:38 | NUR ---
dr telles at bedside for eval.
--- NOTE | 2021-10-11 19:39 | NUR ---
Patient discharged to home in stable condition. Written and verbal after care instructions given. Patient verbalizes understanding of instruction.IV removed. Catheter intact and site benign. Pressure and 4x4 applied to site. No bleeding noted.
[2021-10-11 19:40] VITALS: BP 122/65
== END 2021-10-11 19:40 | disposition home or self-care (01) ==
LOC: ER 15:07
DX: N41.9 Inflammatory disease of prostate, unspecified (principal); N43.3 Hydrocele, unspecified; I86.1 Scrotal varices; D72.829 Elevated white blood cell count, unspecified; I10 Essential (primary) hypertension; E78.5 Hyperlipidemia, unspecified; Z86.73 Personal history of transient ischemic attack (TIA), and cerebral infarction without residual deficits; Z98.890 Other specified postprocedural states; Z79.899 Other long term (current) drug therapy
CPT/HCPCS: 99284; 96374; 96375; 76870; 85025; 80048; 83690; 80076; 81001; 36415; J2270; J2405

== ENCOUNTER 2021-11-28 07:03 | Emergency (ER) | payer OTHER ==
[~2021-11-28] VITALS: Ht 177.8 cm; Wt 69.4 kg
[~2021-11-28 07:03] MED LIST changes: +HYDR-4209 PO; +LEVO750T46 PO
--- NOTE | 2021-11-28 07:16 | NUR ---
PATIENT BIBWIFE C/O GENITAL SWELLING FOR THE PAST MONTH, THIS WEEK PAIN INCREASED AND STARTED RAD TO LOWER. PATIENT IS A/O X 4, RR EVEN AND UNLABORED NO SOB NOTED. PATIENT VSS. PATIENT AFEBRILE. MD AT BEDSIDE
[2021-11-28] MEDS ORDERED: ACETAMINOPHEN ES 500 MG TABLET PO ONE (07:30)
[2021-11-28] MEDS ORDERED: ACETAMINOPHEN ES 500 MG TABLET ONE (07:47)
[2021-11-28 10:12] LABS: BILIRUBIN,URINE NEGATIVE (NEGATIVE); COLOR,URINE YELLOW (YELLOW); LEUKOCYTE ESTERASE ,URINE NEGATIVE (NEGATIVE); NITRITE, URINE NEGATIVE (NEGATIVE); PH,URINE 7.5 (5.0-8.0); PROTEIN,URINE NEGATIVE (NEGATIVE); UGLUCOSE NEGATIVE (NEGATIVE); UROBILINOGEN,URINE 0.2 EU/dL (0.2)
[2021-11-28 10:39] VITALS: BP 124/77
--- NOTE | 2021-11-28 10:39 | NUR ---
Patient discharged to home in stable condition. Written and verbal after care instructions given. Patient verbalizes understanding of instruction.
== END 2021-11-28 10:40 | disposition home or self-care (01) ==
LOC: ER 07:12
DX: N50.89 Other specified disorders of the male genital organs (principal); N43.3 Hydrocele, unspecified; N43.42 Spermatocele of epididymis, multiple; I10 Essential (primary) hypertension; E78.5 Hyperlipidemia, unspecified; E78.00 Pure hypercholesterolemia, unspecified; Z79.899 Other long term (current) drug therapy
CPT/HCPCS: 76870-TC

== ENCOUNTER 2022-01-10 18:00 | Emergency (ER) | payer OTHER ==
[~2022-01-10] VITALS: Ht 177.8 cm; Wt 69.4 kg
--- NOTE | 2022-01-10 19:05 | NUR ---
1813 RIGHT TESTICULAR PAIN X 3 DAYS. TOLERATING R/A WELL WITH NO RESP DISTRESS. SAFETY MEASURES IN PLACE.
--- NOTE | 2022-01-10 19:15 | NUR ---
PT RETURNED TO ER BED [address]
--- NOTE | 2022-01-10 19:25 | NUR ---
US TECH AT PT'S BEDSIDE
[2022-01-10] MEDS ORDERED: MORPHINE SULFATE INJ 2 MG/ML DISP.SYRIN IV ONE (19:30)
[2022-01-10] MEDS ORDERED: ONDANSETRON HCL/PF - ER 4 MG/2 ML VIAL IV ONE (19:30)
[2022-01-10] MEDS ORDERED: ONDANSETRON HCL/PF 4 MG/2 ML VIAL ONE (19:32)
[2022-01-10] MEDS ORDERED: MORPHINE SULFATE INJ 4 MG/ML DISP.SYRIN ONE (19:33)
--- NOTE | 2022-01-10 19:47 | NUR ---
RAC #18G S/L BLOOD AND URINE COLLECTED AND SENT TO LAB
[2022-01-10 20:07] LABS: BILIRUBIN,URINE NEGATIVE (NEGATIVE); COLOR,URINE YELLOW (YELLOW); LEUKOCYTE ESTERASE ,URINE NEGATIVE (NEGATIVE); NITRITE, URINE NEGATIVE (NEGATIVE); PROTEIN,URINE NEGATIVE (NEGATIVE); UGLUCOSE NEGATIVE (NEGATIVE); UROBILINOGEN,URINE 0.2 EU/dL (0.2)
[2022-01-10 20:08] LABS: BASOPHILS % (AUTO) 0.6 % (0.0-2.0); EOSINOPHILS % (AUTO) 4.8 % (0.0-6.0); HEMATOCRIT 45 % (39-51); HEMOGLOBIN 14.8 g/dL (13.5-17.5); LYMPHOCYTES # (AUTO) 2.9 K/uL (0.8-4.8); LYMPHOCYTES % (AUTO) 40.7 % (20.0-44.0); MEAN CORPUSCULAR HGB CONC 33 g/dl (31.0-36.0); MEAN CORPUSCULAR VOLUME 84 fL (80-96); MONOCYTES # (AUTO) 0.5 K/uL (0.1-1.30); MONOCYTES % (AUTO) 7.1 % (2.0-12.0); NEUTROPHILS # (AUTO) 3.3 K/uL (1.8-8.9); NEUTROPHILS % (AUTO) 46.8 % (43.0-81.0); PLATELET COUNT (AUTO) 219 K/uL (150-450); RED BLOOD CELL COUNT(AUTO) 5.35 MIL/uL (4.5-6.0); WHITE BLOOD COUNT (AUTO) 7.1 K/uL (4.3-11.0)
[2022-01-10 20:23] LABS: ALBUMIN 3.8 g/dL (3.4-5.0); BILIRUBIN,DIRECT 0.1 mg/dL (0.0-0.2); BILIRUBIN,TOTAL 0.5 mg/dL (0.2-1.0); CALCIUM, SERUM 8.7 mg/dL (8.5-10.1); CREATININE 0.9 mg/dL (0.6-1.3); POTASSIUM 3.9 mmol/L (3.5-5.1); TOTAL PROTEIN, SERUM 7.4 g/dL (6.4-8.2)
[2022-01-10] MEDS ORDERED: DOXY100C2 PO (21:26)
[2022-01-10] MEDS ORDERED: TRAM50TA2 PO ×2 (21:26→21:27)
--- NOTE | 2022-01-10 21:36 | NUR ---
Patient discharged to home in stable condition. Written and verbal after care instructions given. Patient verbalizes understanding of instruction. IV removed. Catheter intact and site benign. Pressure and 4x4 applied to site. No bleeding noted. pt ambulatory with a steady gait
[2022-01-10 21:37] VITALS: BP 148/71
== END 2022-01-10 21:37 | disposition home or self-care (01) ==
LOC: ER 18:10
DX: G89.29 Other chronic pain (principal); R10.9 Unspecified abdominal pain; N50.811 Right testicular pain; N43.40 Spermatocele of epididymis, unspecified; N43.3 Hydrocele, unspecified; N28.89 Other specified disorders of kidney and ureter; I10 Essential (primary) hypertension; E78.5 Hyperlipidemia, unspecified; E78.00 Pure hypercholesterolemia, unspecified; Z79.899 Other long term (current) drug therapy
CPT/HCPCS: 99284; 74176; 96374; 96375; 76870; 85025; 80048; 83690; 80076; 81003; 36415; J2270; J2405

== ENCOUNTER 2022-05-27 14:20 | Inpatient (IN) | payer OTHER ==
[~2022-05-27] VITALS: Ht 152.4 cm; Wt 76.2 kg
[~2022-05-27 14:20] MED LIST changes: +DOXY100C2 PO
--- NOTE | 2022-05-27 14:30 | NUR ---
BIBS C/O DYSURIA/HEMATURIA AND LOW ABDOMINAL PAIN. AMBULATORY, PLACED IN BED, AAOX4, IN PAIN 10 PS.
--- NOTE | 2022-05-27 14:48 | NUR ---
urine sample collected and sent to lab
--- NOTE | 2022-05-27 14:58 | NUR ---
BLOOD DRAWN AND SENT TO LAB
[2022-05-27 15:05] LABS: BASOPHILS # (AUTO) 0.1 K/uL (0.0-0.2); BASOPHILS % (AUTO) 0.5 % (0.0-2.0); HEMATOCRIT 48 % (39-51); HEMOGLOBIN 15.7 g/dL (13.5-17.5); LYMPHOCYTES # (AUTO) 2.6 K/uL (0.8-4.8); LYMPHOCYTES % (AUTO) 13.9 % (20.0-44.0); MEAN CORPUSCULAR HGB CONC 33 g/dl (31.0-36.0); MEAN CORPUSCULAR VOLUME 83 fL (80-96); MONOCYTES # (AUTO) 0.9 K/uL (0.1-1.30); MONOCYTES % (AUTO) 5.1 % (2.0-12.0); NEUTROPHILS # (AUTO) 14.8 K/uL (1.8-8.9); NEUTROPHILS % (AUTO) 79.5 % (43.0-81.0); PLATELET COUNT (AUTO) 324 K/uL (150-450); RED BLOOD CELL COUNT(AUTO) 5.71 MIL/uL (4.5-6.0); WHITE BLOOD COUNT (AUTO) 18.6 K/uL (4.3-11.0)
[2022-05-27] MEDS ORDERED: MORPHINE SULFATE INJ 2 MG/ML DISP.SYRIN ONE (15:17)
--- NOTE | 2022-05-27 15:20 | NUR ---
PATIENT TAKEN TO CT VIA TYRELL
[2022-05-27] MEDS ORDERED: MORPHINE SULFATE INJ 2 MG/ML DISP.SYRIN IV ONE (15:30)
[2022-05-27 15:37] LABS: BILIRUBIN,URINE NEGATIVE (NEGATIVE); COLOR,URINE YELLOW (YELLOW); LEUKOCYTE ESTERASE ,URINE 2+ (NEGATIVE); NITRITE, URINE NEGATIVE (NEGATIVE); PROTEIN,URINE 3+ mg/dl (NEGATIVE); UGLUCOSE NEGATIVE (NEGATIVE); UROBILINOGEN,URINE 0.2 EU/dL (0.2)
[2022-05-27 15:59] LABS: CALCIUM, SERUM 9.3 mg/dL (8.5-10.1); CARBON DIOXIDE 31 mmol/L (21-32); CHLORIDE 102 mmol/L (98-107); CREATININE 0.9 mg/dL (0.6-1.3); GLUCOSE 120 mg/dL (74-106); POTASSIUM 3.9 mmol/L (3.5-5.1); SODIUM SERUM 138 mmol/L (136-145); UREA NITROGEN, BLOOD 16 mg/dL (7-18)
[2022-05-27 16:04] LABS: ALANINE AMINOTRANSFERASE 32 U/L (12-78); ALBUMIN 4.2 g/dL (3.4-5.0); ALKALINE PHOSPHATASE 104 U/L (46-116); ASPARTATE AMINOTRANSFERASE 28 U/L (15-37); BILIRUBIN,DIRECT 0.1 mg/dL (0.0-0.2); BILIRUBIN,TOTAL 0.3 mg/dL (0.2-1.0); LIPASE 147 U/L (73-393); TOTAL PROTEIN, SERUM 8.4 g/dL (6.4-8.2)
--- NOTE | 2022-05-27 16:08 | NUR ---
received critical lab value from marlene lu 1- 121 Addendum: 05/27/22 at [address] TOLBERT
[2022-05-27 16:19] LABS: BACTERIA,URINE 3+ /HPF (None Seen); MUCUS,URINE Moderate /LPF (None Seen); RBC,URINE 51-80 /HPF (0-2); SQUAMOUS EPITHELIAL CELL,UR 0-2 /HPF (None Seen); WBC,URINE 81-100 /HPF (0-3)
[2022-05-27] MEDS ORDERED: TAMS-12 PO (16:32)
[2022-05-27] MEDS ORDERED: ROSU5TAB13 PO (16:32)
[2022-05-27] MEDS ORDERED: METO25TA20 PO (16:32)
[2022-05-27] MEDS ORDERED: FINA5TAB11 PO (16:32)
--- NOTE | 2022-05-27 16:42 | NUR ---
swab for covid19 sent to lab
[2022-05-27] MEDS ORDERED: ONDANSETRON HCL/PF 4 MG/2 ML VIAL IVP PRN (17:30)
[2022-05-27] MEDS ORDERED: Z GUARD REMEDY 4 OZ OINT TP PRN (17:30)
[2022-05-27] MEDS ORDERED: MAGNESIUM HYDROXIDE 30 ML UDC PO PRN (17:30)
[2022-05-27] MEDS ORDERED: ZOLPIDEM TARTRATE 5 MG TABLET PO PRN (17:30)
[2022-05-27] MEDS ORDERED: MAG HYDROX/AL HYDROX/SIMETH 30 ML UDC PO PRN (17:30)
--- NOTE | 2022-05-27 17:34 | NUR ---
BED 115-1
--- NOTE | 2022-05-27 18:03 | NUR ---
REPORT GIVEN TO MIKA EISENBERG ROOM 115-1 FOR CRISPIN
--- NOTE | 2022-05-27 18:25 | NUR ---
PATIENT TRANSFERED AND ADMITTED PER ACLS PROTOCOL.
[2022-05-27] MEDS ORDERED: clonazePAM 1 MG TABLET PO PRN (19:00)
--- NOTE | 2022-05-27 19:02 | NUR ---
INFORMED DR MCNEILL REGARDING CLONAZEPAM 4MG AT BEDTIME THAT PATIENT TAKES EVERY NIGHT. DR MCNEILL ORDERED PRN. PATIENT STATED, HE GETS JITTERY AND ANXIOUS.
--- NOTE | 2022-05-27 19:15 | NUR ---
TOOL AND DIE MAKER APPRENTICE ADMITTING NOTES RECEIVED PATIENT AWAKE A/OX4 ABLE TO MAKE NEEDS KNOWN. PATIENT ON ROOM AIR TOLERATING WELL. BREATHING EVENLY AND UNLABORED. NO SIGNS OF SOB. NOT IN DISTRESS NOTED. NO COMPLAINTS OF PAIN OR DISCOMFORT AT THIS TIME. PATIENT ON TELE MONITOR WITH READING OF SINUS RHYTHM. SKIN ASSESSMENT PERFORMED. SKIN IS INTACT. PATIENT WITH GARCIA CATHETER DRAINING WELL WITH CLEAR YELLOW URINE NOTED. PATIENT WITH IV ACCESS ON RIGHT AC #20 NOTED TO BE INTACT AND FLUSHING WELL. PATIENT IS ORIENTED TO THE ROOM AND HOW TO USE THE CALL LIGHT WHEN NEEDING HELP. PATIENT VERBALIZES UNDERSTANDING. BELONGINGS ARE ACCOUNTED FOR. SAFETY MEASURES IN PLACED; BED LOCKED AND IN LOWEST POSITION, SIDE RAILS UP X2, CALL LIGHT AND BEDSIDE TABLE WITHIN PATIENTS REACH.
[2022-05-27 20:00] VITALS: BP 126/83
[2022-05-27] MEDS: IV NS 0.9% 1,000 ML IV PRN (21:17)
[2022-05-27] MEDS: PIPERACILLIN /TAZOBACTAM 3.375 G in IV D5W 50 ML IV SCH (21:17)
[2022-05-27] MEDS: ATORVASTATIN 10 MG TABLET PO SCH (21:18)
[2022-05-27] MEDS: METOPROLOL TARTRATE 25 MG TABLET PO SCH (21:19)
[2022-05-27] MEDS: HYDROCODONE/APAP 10/325MG TABLET PO PRN (21:42)
[2022-05-28] VITALS: BP 93/51
[2022-05-28] MEDS: PIPERACILLIN /TAZOBACTAM 3.375 G in IV D5W 50 ML IV SCH ×3 (00:02→11:05)
[2022-05-28 04:00] VITALS: BP 118/73
[2022-05-28 06:07] LABS: BASOPHILS % (AUTO) 0.1 % (0.0-2.0); EOSINOPHILS % (AUTO) 0.2 % (0.0-6.0); HEMATOCRIT 44 % (39-51); HEMOGLOBIN 14.2 g/dL (13.5-17.5); LYMPHOCYTES # (AUTO) 1.5 K/uL (0.8-4.8); LYMPHOCYTES % (AUTO) 5.6 % (20.0-44.0); MEAN CORPUSCULAR HGB CONC 33 g/dl (31.0-36.0); MEAN CORPUSCULAR VOLUME 84 fL (80-96); MONOCYTES # (AUTO) 1.3 K/uL (0.1-1.30); MONOCYTES % (AUTO) 4.9 % (2.0-12.0); NEUTROPHILS # (AUTO) 23.3 K/uL (1.8-8.9); NEUTROPHILS % (AUTO) 89.2 % (43.0-81.0); PLATELET COUNT (AUTO) 278 K/uL (150-450); RED BLOOD CELL COUNT(AUTO) 5.21 MIL/uL (4.5-6.0); WHITE BLOOD COUNT (AUTO) 26.1 K/uL (4.3-11.0)
[2022-05-28 06:22] LABS: CALCIUM, SERUM 8.2 mg/dL (8.5-10.1); MAGNESIUM 1.7 mg/dL (1.8-2.4); PHOSPHORUS 3.5 mg/dL (2.5-4.9)
[2022-05-28 06:34] LABS: PROSTATE SPECIFIC ANTIGEN SCR 42.99 ng/mL (0.00-4.00)
--- NOTE | 2022-05-28 07:15 | NUR ---
FORM SETTER/DRIVER CLOSING NOTES PATIENT SLEEPING IN BED EASILY AWAKEN WHEN CALLED BY NAME. A/OX4. PATIENT WITH IV ACCESS ON RIGHT AC #20G, NOTED TO BE PATENT AND INTACT. INFUSING NS 0.9% @90CC/HR. WITH GARCIA CATHETER WITH CLEAR YELLOW OUTPUT OF . GARCIA CATHETER SITE IS CHECKED; NOTED TO BE SECURE, NO REDNESS, NO SWELLING. PATIENT IS NOT IN PAIN AT THIS TIME. MADE SURE PATIENT IS COMFORTABLE. ALL DUE MEDICATIONS ARE GIVE. ALL NEEDS ARE MET. SAFETY MEASURES IN PLACED; BED LOCKED AND IN LOWEST POSITION, HOB SLIGHTLY ELEVATED, SIDE RAIL UP X3, CALL LIGHT AND BEDSIDE TABLE WITHIN PATIENT REACH. WILL ENDORSE TO NEXT SHIFT FOR CONTINUITY OF CARE.
--- NOTE | 2022-05-28 07:25 | NUR ---
AUTOMOBILE DESIGNER OPEN NOTES PATIENT SLEEPING IN BED EASILY AWAKEN WHEN CALLED BY NAME. A/OX4. PATIENT WITH IV ACCESS ON RIGHT AC #20G, NOTED TO BE PATENT AND INTACT. INFUSING NS 0.9% @90CC/HR. WITH GARCIA CATHETER WITH CLEAR YELLOW OUTPUT OF. GARCIA CATHETER SITE IS CHECKED; NOTED TO BE SECURE, NO REDNESS, NO SWELLING. PATIENT IS NOT IN PAIN AT THIS TIME. MADE SURE PATIENT IS COMFORTABLE.. SAFETY MEASURES IN PLACED; BED LOCKED AND IN LOWEST POSITION, HOB SLIGHTLY ELEVATED, SIDE RAIL UP X3, CALL LIGHT AND BEDSIDE TABLE WITHIN PATIENT REACH. WILL COMTINUE TO MONITOR
[2022-05-28 08:00] VITALS: BP 130/75
[2022-05-28] MEDS: EZETIMIBE 10 MG TABLET PO SCH (08:24)
[2022-05-28] MEDS: FINASTERIDE (5 MG) 5 MG TABLET PO SCH (08:25)
[2022-05-28] MEDS: METOPROLOL TARTRATE 25 MG TABLET PO SCH ×2 (08:25→20:28)
[2022-05-28] MEDS: TAMSULOSIN 0.4 MG CAP.SR.24H PO SCH (08:25)
[2022-05-28] MEDS: AMLODIPINE BESYLATE 2.5 MG TABLET PO SCH (08:25)
[2022-05-28] MEDS ORDERED: APIXABAN 5 MG TABLET PO SCH (09:00)
[2022-05-28] MEDS ORDERED: MAGNESIUM OXIDE 400 MG TABLET PO ONE (11:00)
[2022-05-28 12:00] VITALS: BP 145/73
[2022-05-28] MEDS: IV NS 0.9% 1,000 ML IV PRN (12:08)
[2022-05-28] MEDS: MEROPENEM 1 G in IV NS 0.9% 100 ML IV SCH ×2 (12:10→20:27)
[2022-05-28 16:00] VITALS: BP 147/75
[2022-05-28] MEDS: ATORVASTATIN 10 MG TABLET PO SCH (17:08)
[2022-05-28] MEDS: ACETAMINOPHEN 325 MG TABLET PO PRN ×2 (18:13→18:16)
--- NOTE | 2022-05-28 18:46 | NUR ---
SUPERVISOR DIAGNOSTIC OPEN NOTES PATIENT SLEEPING IN BED EASILY AWAKEN WHEN CALLED BY NAME. A/OX4. PATIENT WITH IV ACCESS ON RIGHT AC #20G, NOTED TO BE PATENT AND INTACT. INFUSING NS 0.9% @90CC/HR. WITH GARCIA CATHETER WITH CLEAR YELLOW OUTPUT OF. GARCIA CATHETER SITE IS CHECKED; NOTED TO BE SECURE, NO REDNESS, NO SWELLING. PATIENT IS NOT IN PAIN AT THIS TIME. MADE SURE PATIENT IS COMFORTABLE.. SAFETY MEASURES IN PLACED; BED LOCKED AND IN LOWEST POSITION, HOB SLIGHTLY ELEVATED, SIDE RAIL UP X3, CALL LIGHT AND BEDSIDE TABLE WITHIN PATIENT REACH. WILL endorse shift engineer nurse to fallow poc
--- NOTE | 2022-05-28 19:30 | NUR ---
MD ALLERGY IMMUNOLOGY OPENING NOTES RECEIVED PT AWAKE IN BED, FAMILY AT BEDSIDE. A/OX4, ABLE TO MAKE NEEDS KNOWN. ON RA WITH NO S/S OF SOB OR DISTRESS. DENIES PAIN AT THIS TIME. ON TELE MONITOR READING SR 86. IV ACCESS RAC #20G, PATENT, INTACT, FLUSHING WELL. INFUSING NS 0.9% @ 90 ML/HR. GARCIA CATHETER INTACT, WITH CLEAR YELLOW OUTPUT NOTED. SAFETY MEASURES IN PLACE: BED LOCKED AND IN LOWEST POSITION, HOB SLIGHTLY ELEVATED, SIDE RAIL UP X3, CALL LIGHT AND BEDSIDE TABLE WITHIN PATIENT REACH. WILL CONTINUE TO MONITOR AND ASSIST.
[2022-05-28 20:00] VITALS: BP 113/56
--- NOTE | 2022-05-28 23:15 | NUR ---
RN NOTE CRITICAL LAB VALUE REPORT: TROPONIN 188 PT TELE MONITOR SHOWS TELE SR/SB. DR DODD NOTIFIED. NO NEW ORDERS. WILL CONTINUE TO MONITOR.
[2022-05-29] VITALS (7 sets, daily range): BP systolic 102–156; BP diastolic 59–80
[2022-05-29] MEDS: IV NS 0.9% 1,000 ML IV PRN ×2 (02:16→20:29)
[2022-05-29] MEDS: MEROPENEM 1 G in IV NS 0.9% 100 ML IV SCH ×3 (05:32→20:15)
[2022-05-29 07:02] LABS: BASOPHILS % (AUTO) 0.1 % (0.0-2.0); EOSINOPHILS % (AUTO) 0.1 % (0.0-6.0); HEMATOCRIT 41 % (39-51); HEMOGLOBIN 13.9 g/dL (13.5-17.5); LYMPHOCYTES # (AUTO) 1.5 K/uL (0.8-4.8); LYMPHOCYTES % (AUTO) 6.3 % (20.0-44.0); MEAN CORPUSCULAR HGB CONC 33 g/dl (31.0-36.0); MEAN CORPUSCULAR VOLUME 83 fL (80-96); MONOCYTES # (AUTO) 1.3 K/uL (0.1-1.30); MONOCYTES % (AUTO) 5.2 % (2.0-12.0); NEUTROPHILS # (AUTO) 21.7 K/uL (1.8-8.9); NEUTROPHILS % (AUTO) 88.3 % (43.0-81.0); PLATELET COUNT (AUTO) 233 K/uL (150-450); RED BLOOD CELL COUNT(AUTO) 4.97 MIL/uL (4.5-6.0); WHITE BLOOD COUNT (AUTO) 24.5 K/uL (4.3-11.0)
[2022-05-29 07:20] LABS: CALCIUM, SERUM 8.3 mg/dL (8.5-10.1); CREATININE 0.9 mg/dL (0.6-1.3); MAGNESIUM 1.9 mg/dL (1.8-2.4); POTASSIUM 3.7 mmol/L (3.5-5.1)
--- NOTE | 2022-05-29 07:24 | NUR ---
PROOFSHEET CORRECTOR OPENING NOTES RECEIVED PT AWAKE IN BED, FAMILY AT BEDSIDE. A/OX4, ABLE TO MAKE NEEDS KNOWN. ON RA WITH NO S/S OF SOB OR DISTRESS. DENIES PAIN AT THIS TIME. ON TELE MONITOR READING SR 82. IV ACCESS RAC #20G, PATENT, INTACT, FLUSHING WELL. INFUSING NS 0.9% @ 90 ML/HR. GARCIA CATHETER INTACT, WITH CLEAR YELLOW OUTPUT NOTED. SAFETY MEASURES IN PLACE: BED LOCKED AND IN LOWEST POSITION, HOB SLIGHTLY ELEVATED, SIDE RAIL UP X3, CALL LIGHT AND BEDSIDE TABLE WITHIN PATIENT REACH. WILL CONTINUE TO MONITOR AND ASSIST.
--- NOTE | 2022-05-29 07:39 | NUR ---
TAKE UP SUPERVISOR CLOSING NOTES PT AWAKE IN BED, FAMILY AT BEDSIDE. A/OX4, ABLE TO MAKE NEEDS KNOWN. STABLE ON RA WITH NO S/S OF SOB OR DISTRESS. DENIES PAIN AT THIS TIME. ON TELE MONITOR READING SR 78. IV ACCESS RAC #20G, PATENT, INTACT, FLUSHING WELL. INFUSING NS 0.9% @ 90 ML/HR. GARCIA CATHETER INTACT, WITH CLEAR YELLOW OUTPUT NOTED. ALL CARE PROVIDED AND MEDS TOLERATED WELL. SAFETY MEASURES MAINTAINED: BED LOCKED AND IN LOWEST POSITION, HOB SLIGHTLY ELEVATED, SIDE RAIL UP X3, CALL LIGHT AND BEDSIDE TABLE WITHIN PATIENT REACH. WILL ENDORSE CRISPIN TO DAY SHIFT NURSE.
[2022-05-29] MEDS: FINASTERIDE (5 MG) 5 MG TABLET PO SCH (08:29)
[2022-05-29] MEDS: EZETIMIBE 10 MG TABLET PO SCH (08:29)
[2022-05-29] MEDS: TAMSULOSIN 0.4 MG CAP.SR.24H PO SCH (08:29)
[2022-05-29] MEDS: METOPROLOL TARTRATE 25 MG TABLET PO SCH ×2 (08:29→20:17)
[2022-05-29] MEDS: AMLODIPINE BESYLATE 2.5 MG TABLET PO SCH (08:30)
[2022-05-29] MEDS: ATORVASTATIN 10 MG TABLET PO SCH (17:17)
--- NOTE | 2022-05-29 18:50 | NUR ---
PROCESS SAFETY MANAGEMENT ENGINEER CLOSING NOTES PATIENT SLEEPING IN BED EASILY AWAKEN WHEN CALLED BY NAME. A/OX4. PATIENT WITH IV ACCESS ON RIGHT AC #20G, PATENT AND INTACT. INFUSING NS 0.9% @90CC/HR. WITH GARCIA CATHETER WITH CLEAR YELLOW OUTPUT O 2100 GARCIA CATHETER SITE IS CHECKED; NOTED TO BE SECURE, NO REDNESS, NO SWELLING. PATIENT IS NOT IN PAIN AT THIS TIME. MADE SURE PATIENT IS COMFORTABLE. ALL DUE MEDICATIONS ARE GIVE. ALL NEEDS ARE MET. SAFETY MEASURES IN PLACED; BED LOCKED AND IN LOWEST POSITION, HOB SLIGHTLY ELEVATED, SIDE RAIL UP X3, CALL LIGHT AND BEDSIDE TABLE WITHIN PATIENT REACH. WILL ENDORSE TO SQUASH CENTRE MANAGER FOR CONTINUITY OF CARE.
[2022-05-29] MEDS: ACETAMINOPHEN 325 MG TABLET PO PRN (19:47)
--- NOTE | 2022-05-29 21:07 | NUR ---
RECEIVED PATIENT IN BED, ALERT/ORIENTED X4, STABLE ON ROOM AIR, NO COMPLAIN OF CHEST PAIN, VS STABLE, COMPLAINING OF HEADACHE, GIVEN TYLENOL 650 MG. GARCIA CATHETER DRAINING WELL, KEPT ON CLEAR LIQUID DIET, NO COMPLAIN OF N/V, KEPT SAFE, WILL CONTINUE TO MONITOR.
[2022-05-30] VITALS: BP 123/67
[2022-05-30 04:00] VITALS: BP 131/74
[2022-05-30] MEDS: MEROPENEM 1 G in IV NS 0.9% 100 ML IV SCH ×3 (04:40→20:33)
[2022-05-30] MEDS: HYDROCODONE/APAP 10/325MG TABLET PO PRN (04:47)
--- NOTE | 2022-05-30 06:21 | NUR ---
ALERT/ORIENTED X4, ROOM AIR, ABDOMINAL PAIN, NORCO 1 TAB X1, GARCIA CATHETER DRAINING WELL, REMAINED ON CLEAR LIQUID DIET, ADVANCE DIET TOLERATED, CONTINUE MERREM, IVF, UROLOGY CONSULT DONE, NO IMMEDIATE INTERVENTION. TROPONIN HS TRENDING DOWN, LATEST RESULT 05/29/22 AT 2224, 104, AWAITING URINE CULTURE.
[2022-05-30 07:10] LABS: BASOPHILS % (AUTO) 0.3 % (0.0-2.0); EOSINOPHILS % (AUTO) 0.4 % (0.0-6.0); HEMATOCRIT 38 % (39-51); HEMOGLOBIN 12.5 g/dL (13.5-17.5); LYMPHOCYTES # (AUTO) 1.4 K/uL (0.8-4.8); LYMPHOCYTES % (AUTO) 9.1 % (20.0-44.0); MEAN CORPUSCULAR HGB CONC 33 g/dl (31.0-36.0); MEAN CORPUSCULAR VOLUME 83 fL (80-96); MONOCYTES % (AUTO) 6.7 % (2.0-12.0); NEUTROPHILS # (AUTO) 12.8 K/uL (1.8-8.9); NEUTROPHILS % (AUTO) 83.5 % (43.0-81.0); PLATELET COUNT (AUTO) 217 K/uL (150-450); WHITE BLOOD COUNT (AUTO) 15.3 K/uL (4.3-11.0)
--- NOTE | 2022-05-30 07:59 | NUR ---
LANG PATH THERAPIST OPENING NOTES RECEIVED PT ON BED, ASLEEP BUT AROUSABLE, A/OX4, ABLE TO MAKE NEEDS KNOWN. ON RA WITH NO S/S OF SOB OR DISTRESS. DENIES PAIN AT THIS TIME. ON TELE MONITOR READING SR 62. IV ACCESS RAC #20G, PATENT, INTACT, INFUSING NS 0.9% @ 90 ML/HR. GARCIA CATHETER INTACT, WITH CLEAR YELLOW OUTPUT NOTED. SAFETY MEASURES IN PLACE: BED LOCKED AND IN LOWEST POSITION, HOB SLIGHTLY ELEVATED, SIDE RAIL UP X3, CALL LIGHT AND BEDSIDE TABLE WITHIN PATIENT REACH. WILL CONTINUE TO MONITOR AND ASSIST.
[2022-05-30 08:00] VITALS: BP 112/67
[2022-05-30 08:05] LABS: CALCIUM, SERUM 8.1 mg/dL (8.5-10.1); CREATININE 0.8 mg/dL (0.6-1.3); POTASSIUM 3.5 mmol/L (3.5-5.1)
[2022-05-30] MEDS: AMLODIPINE BESYLATE 2.5 MG TABLET PO SCH (09:00)
[2022-05-30] MEDS: TAMSULOSIN 0.4 MG CAP.SR.24H PO SCH (09:00)
[2022-05-30] MEDS: METOPROLOL TARTRATE 25 MG TABLET PO SCH ×2 (09:00→20:35)
[2022-05-30] MEDS: EZETIMIBE 10 MG TABLET PO SCH (09:00)
[2022-05-30] MEDS: FINASTERIDE (5 MG) 5 MG TABLET PO SCH (09:00)
--- NOTE | 2022-05-30 09:32 | NUR ---
LOPRESSOR AND NORVASC NOT GIVEN SECONDARY TO LOW HR
[2022-05-30 12:00] VITALS: BP 124/71
[2022-05-30] MEDS: ACETAMINOPHEN 325 MG TABLET PO PRN ×2 (12:31→20:51)
--- NOTE | 2022-05-30 15:36 | NUR ---
REMOVED GARCIA CATHETER BY MD ORDER, WILL CONTINUE MONITOR FOR URINE OUT.
[2022-05-30 16:00] VITALS: BP_SYST 115; BP_SYST 124; BP_DIAS 63; BP_DIAS 71
--- NOTE | 2022-05-30 16:00 | NUR ---
PATIENT SIGNED DISCLOSURE FORM AND FAXED OVER TO [facility] [place] TO REQUEST MEDICAL RECORD. Addendum: 05/30/22 at 1606 by SHANNON ADAMSON RN ERROR
--- NOTE | 2022-05-30 16:06 | NUR ---
PATIENT SIGNED DISCLOSURE HEALTH INFORMATION FORM AND FAXED OVER TO [facility] TO REQUEST MEDICAL RECORD.
[2022-05-30] MEDS: ATORVASTATIN 10 MG TABLET PO SCH (17:27)
--- NOTE | 2022-05-30 18:49 | NUR ---
BUDGET CONSULTANT CLOSING NOTES AWAKE, A/OX4, ABLE TO MAKE NEEDS KNOWN. ON RA WITH NO S/S OF SOB OR DISTRESS. DENIES PAIN AT THIS TIME. . IV ACCESS RAC #20G, PATENT, INTACT. GARCIA CATHETER DCD ORDERED, ABLE TO VOID FREELY. SAFETY MEASURES IN PLACE: BED LOCKED AND IN LOWEST POSITION, HOB SLIGHTLY ELEVATED, SIDE RAIL UP X3, CALL LIGHT AND BEDSIDE TABLE WITHIN PATIENT REACH.ALL NEEDS ATTENDED, ENDORSED TO AFTER SCHOOL TUTOR rn FOR CONTINUITY OF CARE.
--- NOTE | 2022-05-30 19:00 | NUR ---
EXECUTIVE RELATIONS SPECIALIST OPENING NOTE PT IS A/O X 4, [place] SPEAKING BUT ABLE TO SPEAK AND UNDERSTAND SIMPLE OCCITAN, ABLE TO MAKE NEEDS KNOWN. PT IS ON RA, TOLERATING WELL, BREATHING EVEN AND UNLABORED @THIS TIME. PT IV ACCESS IS PRESENT ON RIGHT AC #20G, PATENT, INTACT AND FLUSHES WELL WITH NO S & SX OF INFILTRATION @ SITE NOTED. PT IS USING URINAL BUT CAN INDEPENDENTLY WALK TO THE BATHROOM. SAFETY MEASURES IS IN PLACE. BED AT ITS LOWEST AND LOCKED POSITION. SIDE RAILS UP X 2 . BEDSIDE TABLE AND CALL LIGHT IS EASY REACH. BED ALARM IS ON. WILL CONTINUE TO MONITOR PT ACCORDINGLY.
[2022-05-30 20:00] VITALS: BP 133/76
--- NOTE | 2022-05-30 20:56 | NUR ---
GIVEN TYLENOL 650MG TO PT. TEMPERATURE 106.6 F.
[2022-05-31] VITALS: BP 133/76
[2022-05-31 04:00] VITALS: BP 128/69
[2022-05-31] MEDS: MEROPENEM 1 G in IV NS 0.9% 100 ML IV SCH ×3 (04:05→21:17)
[2022-05-31 06:25] LABS: CALCIUM, SERUM 8.1 mg/dL (8.5-10.1); CREATININE 0.8 mg/dL (0.6-1.3); POTASSIUM 3.5 mmol/L (3.5-5.1)
[2022-05-31 06:32] LABS: BASOPHILS % (AUTO) 0.6 % (0.0-2.0); EOSINOPHILS % (AUTO) 1.6 % (0.0-6.0); HEMATOCRIT 38 % (39-51); HEMOGLOBIN 12.8 g/dL (13.5-17.5); LYMPHOCYTES # (AUTO) 1.2 K/uL (0.8-4.8); LYMPHOCYTES % (AUTO) 17.3 % (20.0-44.0); MEAN CORPUSCULAR HGB CONC 33 g/dl (31.0-36.0); MEAN CORPUSCULAR VOLUME 82 fL (80-96); MONOCYTES # (AUTO) 0.8 K/uL (0.1-1.30); MONOCYTES % (AUTO) 11.6 % (2.0-12.0); NEUTROPHILS # (AUTO) 4.6 K/uL (1.8-8.9); NEUTROPHILS % (AUTO) 68.9 % (43.0-81.0); PLATELET COUNT (AUTO) 239 K/uL (150-450); RED BLOOD CELL COUNT(AUTO) 4.63 MIL/uL (4.5-6.0); WHITE BLOOD COUNT (AUTO) 6.6 K/uL (4.3-11.0)
--- NOTE | 2022-05-31 06:50 | NUR ---
RN CLOSING NOTES PT ASLEEP & RESTING COMFORTABLY IN BED. PT IS RESPONSIVE AND FOLLOWS VERBAL COMMANDS. PT IS ON RA,O2 SAT IS 98%, WITH NO RESPIRATOPRY DISTRESS @THIS TIME. PT IV ACCESS IS PRESENT ON RIGHT AC #20G, PATENT, INTACT AND FLUSHES WELL WITH NO S & SX OF INFILTRATION @ SITE NOTED. PT IS USING URINAL BUT CAN INDEPENDENTLY WALK TO THE BATHROOM. ADMINISTERED MEDICATION ACCORDINGLY PER MD'S ORDER. SAFETY MEASURES IS IN PLACE. BED AT ITS LOWEST AND LOCKED POSITION. SIDE RAILS UP X 2 . BEDISDE TABLE AND CALL LIGHT IS EASY REACH. BED ALARM IS ON. WILL ENDORSE TO THE NEXT SHIFT FOR CONTINUITY OF CARE.
--- NOTE | 2022-05-31 07:35 | NUR ---
OPENING NOTE PT IS A/O X 4, [place] SPEAKING BUT ABLE TO SPEAK AND UNDERSTAND SIMPLE [place], ABLE TO MAKE NEEDS KNOWN. PT IS ON RA, TOLERATING WELL, BREATHING EVEN AND UNLABORED @THIS TIME. PT IV ACCESS IS PRESENT ON RIGHT AC #20G, PATENT, INTACT AND FLUSHES WELL WITH NO S & SX OF INFILTRATION @ SITE NOTED. PT IS USING URINAL BUT CAN INDEPENDENTLY WALK TO THE BATHROOM. SAFETY MEASURES IS IN PLACE. BED AT ITS LOWEST AND LOCKED POSITION. SIDE RAILS UP X 2 . BEDSIDE TABLE AND CALL LIGHT IS EASY REACH. BED ALARM IS ON. WILL CONTINUE TO MONITOR PT ACCORDINGLY.
[2022-05-31 08:00] VITALS: BP 130/70
[2022-05-31] MEDS: METOPROLOL TARTRATE 25 MG TABLET PO SCH ×2 (08:07→21:00)
[2022-05-31] MEDS: AMLODIPINE BESYLATE 2.5 MG TABLET PO SCH (08:08)
[2022-05-31] MEDS: FINASTERIDE (5 MG) 5 MG TABLET PO SCH (08:08)
[2022-05-31] MEDS: EZETIMIBE 10 MG TABLET PO SCH (08:08)
[2022-05-31] MEDS: TAMSULOSIN 0.4 MG CAP.SR.24H PO SCH (08:11)
--- NOTE | 2022-05-31 12:20 | NUR ---
PATIENT'S DIET CHANGED TO FULL LIQUID DIET
[2022-05-31 16:00] VITALS: BP 128/70
--- NOTE | 2022-05-31 16:32 | NUR ---
DR REYES CAME AND ASSESSED THE PATIENT'S CONDITION. MD WILL TALK TO DR LALA REGARDING CHEST TUBE PLACEMENT.
[2022-05-31] MEDS: ATORVASTATIN 10 MG TABLET PO SCH (17:22)
--- NOTE | 2022-05-31 18:44 | NUR ---
PATIENT IS AWAKE,ALERT,ORIENTEDX3, [place] SPEAKING, NO SIGNS OF IN DISTRESS, UNLABORED BREATHING ON ROOM AIR, NO COMPLAINT OF PAIN, SAFETY MEASURES APPLIED. BED IN LOW POSITION LOCKED, SIDE RAILS UPX3, CALL LIGHT WITHIN REACH
--- NOTE | 2022-05-31 19:20 | NUR ---
RN NOTE RECEIVED PATIENT IN BED WITH FAMILY AT BEDSIDE, AAO X4, ON ROOM AIR, NO SOB/DISTRESS NOTED, O2 SAT 100%. DENIES PAIN AT THIS TIME. IV ACCESS ON RIGHT AC #20G S/L, INTACT AND FLUSHES WELL. SAFETY MEASURES IN PLACE: BED LOCKED AND IN LOWEST POSITION, SIDE RAILS UP X2, CALL LIGHT WITHIN REACH.
[2022-05-31 20:00] VITALS: BP 122/60
--- NOTE | 2022-05-31 21:18 | NUR ---
RN NOTE PATIENT HR 58, BP 122/60. HELD LOPRESSOR.
[2022-06-01 04:00] VITALS: BP 130/55
[2022-06-01] MEDS: MEROPENEM 1 G in IV NS 0.9% 100 ML IV SCH ×2 (05:15→12:02)
--- NOTE | 2022-06-01 07:10 | NUR ---
OPENING NOTE PT IS A/O X 4, [place] SPEAKING BUT ABLE TO SPEAK AND UNDERSTAND SIMPLE [place] CITIZEN, ABLE TO MAKE NEEDS KNOWN. PT IS ON RA, TOLERATING WELL, BREATHING EVEN AND UNLABORED @THIS TIME. PT IV ACCESS IS PRESENT ON RIGHT AC #20G, PATENT, INTACT AND FLUSHES WELL WITH NO S & SX OF INFILTRATION @ SITE NOTED. PT IS USING URINAL BUT CAN INDEPENDENTLY WALK TO THE BATHROOM. SAFETY MEASURES IS IN PLACE. BED AT ITS LOWEST AND LOCKED POSITION. SIDE RAILS UP X 2 . BEDSIDE TABLE AND CALL LIGHT IS EASY REACH. BED ALARM IS ON. WILL CONTINUE TO MONITOR PT ACCORDINGLY.
--- NOTE | 2022-06-01 07:26 | NUR ---
RN CLOSING NOTE PATIENT IN BED, AAO X4, ON ROOM AIR, NO SOB/DISTRESS NOTED, O2 SAT 100%. DENIES PAIN AT THIS TIME. IV ACCESS ON RIGHT AC #20G S/L, INTACT AND FLUSHES WELL. ALL DUE MEDS WERE GIVEN AND NEEDS ATTENDED. SAFETY MEASURES IN PLACE: BED LOCKED AND IN LOWEST POSITION, SIDE RAILS UP X2, CALL LIGHT WITHIN REACH. ENDORSED TO AM NURSE FOR CRISPIN.
[2022-06-01] MEDS: EZETIMIBE 10 MG TABLET PO SCH (08:04)
[2022-06-01] MEDS: FINASTERIDE (5 MG) 5 MG TABLET PO SCH (08:05)
[2022-06-01] MEDS: AMLODIPINE BESYLATE 2.5 MG TABLET PO SCH (08:05)
[2022-06-01] MEDS: TAMSULOSIN 0.4 MG CAP.SR.24H PO SCH (08:06)
[2022-06-01] MEDS: METOPROLOL TARTRATE 25 MG TABLET PO SCH (08:06)
--- NOTE | 2022-06-01 08:06 | NUR ---
METOPROLOL 25MG NOT GIVEN D/T HR 50, BP-108/70
[2022-06-01] MEDS ORDERED: MERO1VIA23 IV (12:50)
[2022-06-01] MEDS ORDERED: Tamsulosin PO (12:50)
--- NOTE | 2022-06-01 15:26 | NUR ---
MIDLINE INSERTED, DISCONTINUE RIGHT AC PERIPHERAL IV LINE.
[2022-06-01 16:00] VITALS: BP 120/79
[2022-06-01 16:28] LABS: PROSTATE SPECIFIC ANTIGEN SCR 40.45 ng/mL (0.00-4.00)
[2022-06-01] MEDS: ATORVASTATIN 10 MG TABLET PO SCH (17:04)
[2022-06-01] MEDS ORDERED: MEROPENEM 1 G in IV NS 0.9% 100 ML IV SCH (18:00)
--- NOTE | 2022-06-01 18:49 | NUR ---
PATIENT IS DISCHARGE HOME AND PATENT CLERK WITH , PATIENT IS IN STABLE CONDITION.
== END 2022-06-01 18:50 | disposition home health service (06) | DRG 244 ==
LOC: ER 14:20 → TELE1 17:48 → MEDSG1 05-30 17:31
PROVIDERS: ADMIT Nurse Practitioner Acute Care; ATTEND Nurse Practitioner Acute Care
DX: K57.32 Diverticulitis of large intestine without perforation or abscess without bleeding (principal); I21.A1 Myocardial infarction type 2; J15.6 Pneumonia due to other Gram-negative bacteria; I11.0 Hypertensive heart disease with heart failure; J43.8 Other emphysema; J90 Pleural effusion, not elsewhere classified; I50.9 Heart failure, unspecified; Z79.01 Long term (current) use of anticoagulants; N39.0 Urinary tract infection, site not specified; Z98.61 Coronary angioplasty status; I25.10 Atherosclerotic heart disease of native coronary artery without angina pectoris; I35.9 Nonrheumatic aortic valve disorder, unspecified; E78.00 Pure hypercholesterolemia, unspecified; Z79.899 Other long term (current) drug therapy; B96.89 Other specified bacterial agents as the cause of diseases classified elsewhere; N40.0 Benign prostatic hyperplasia without lower urinary tract symptoms; Z86.73 Personal history of transient ischemic attack (TIA), and cerebral infarction without residual deficits; Z87.440 Personal history of urinary (tract) infections; Z87.891 Personal history of nicotine dependence; N41.9 Inflammatory disease of prostate, unspecified; J98.11 Atelectasis; Z16.12 Extended spectrum beta lactamase (ESBL) resistance
CPT/HCPCS: 36415; 71045-TC; 71250-TC; 80048-TC; 80076-TC; 81001; 83690-TC; 83735-TC; 84100-TC; 84153-TC; 84154-TC; 84484-TC; 85025-TC; 86803; 87081-TC; 87086-TC; 87806; 93307-TC; A4223; C9803; G0378; J2185; J2270; J2543; J7030; J7050; J7060

== ENCOUNTER 2022-08-03 03:57 | Emergency (ER) | payer OTHER ==
[~2022-08-03] VITALS: Ht 167.6 cm; Wt 80.3 kg
[~2022-08-03 03:57] MED LIST changes: -DOXY100C2 PO; +FINA5TAB11 PO; -FURO20TA4 PO; -HYDR-4209 PO; -LEVO750T46 PO; +MERO1VIA23 IV; +ROSU5TAB13 PO; -TAMS-12 PO; +Tamsulosin PO
[2022-08-03] MEDS ORDERED: LIDOCAINE 2% JEL UROJET 10 ML MM ONE (04:02)
--- NOTE | 2022-08-03 04:11 | NUR ---
CALLED LAB TO GOVERNMENT MINISTER URINE SAMPLE
--- NOTE | 2022-08-03 04:11 | NUR ---
URINE OUTPUT VIA GARCIA 100CC
--- NOTE | 2022-08-03 04:18 | NUR ---
URINE OUTPUT 400CC VIA GARCIA
[2022-08-03 05:13] LABS: BILIRUBIN,URINE NEGATIVE (NEGATIVE); COLOR,URINE YELLOW (YELLOW); LEUKOCYTE ESTERASE ,URINE NEGATIVE (NEGATIVE); NITRITE, URINE NEGATIVE (NEGATIVE); PH,URINE 5.5 (5.0-8.0); PROTEIN,URINE NEGATIVE (NEGATIVE); UGLUCOSE NEGATIVE (NEGATIVE); UROBILINOGEN,URINE 0.2 EU/dL (0.2)
[2022-08-03 05:16] LABS: BACTERIA,URINE Rare /HPF (None Seen); SQUAMOUS EPITHELIAL CELL,UR Few /HPF (None Seen); WBC,URINE 0-2 /HPF (0-3)
--- NOTE | 2022-08-03 05:35 | NUR ---
Patient discharged to home in stable condition. Written and verbal after care instructions given. Patient verbalizes understanding of instruction.
[2022-08-03 05:37] VITALS: BP 131/76
== END 2022-08-03 05:37 | disposition home or self-care (01) ==
LOC: ER 03:58
DX: R33.9 Retention of urine, unspecified (principal); E78.5 Hyperlipidemia, unspecified; I10 Essential (primary) hypertension; Z86.73 Personal history of transient ischemic attack (TIA), and cerebral infarction without residual deficits; E78.00 Pure hypercholesterolemia, unspecified; Z98.890 Other specified postprocedural states; Z79.899 Other long term (current) drug therapy
CPT/HCPCS: 99284; 51702; 81001; J3490

== ENCOUNTER 2022-08-04 22:23 | Emergency (ER) | payer OTHER ==
[~2022-08-04] VITALS: Ht 167.6 cm; Wt 80.3 kg
--- NOTE | 2022-08-04 22:35 | NUR ---
Bibfamily c/o abd pain and groin area. was here for urinary retention, has f/c in place. Pt A/Ox4; Mongolian speaking. Tolerating R/A well with no resp. distress. Safety measures in place.
--- NOTE | 2022-08-04 22:40 | NUR ---
URINE COLLECTED AND SENT TO LAB
[2022-08-04 23:02] LABS: BILIRUBIN,URINE NEGATIVE (NEGATIVE); COLOR,URINE YELLOW (YELLOW); LEUKOCYTE ESTERASE ,URINE NEGATIVE (NEGATIVE); NITRITE, URINE NEGATIVE (NEGATIVE); PROTEIN,URINE 1+ mg/dl (NEGATIVE); UGLUCOSE NEGATIVE (NEGATIVE); UROBILINOGEN,URINE 0.2 EU/dL (0.2)
[2022-08-04] MEDS ORDERED: LIDOCAINE 2% JEL UROJET 10 ML MM ONE ×2 (23:06→23:30)
[2022-08-04] MEDS ORDERED: MORPHINE SULFATE INJ 2 MG/ML DISP.SYRIN IV ONE (23:30)
[2022-08-04] MEDS ORDERED: MORPHINE SULFATE INJ 4 MG/ML DISP.SYRIN ONE (23:31)
[2022-08-04 23:41] LABS: BACTERIA,URINE Rare /HPF (None Seen); SQUAMOUS EPITHELIAL CELL,UR Few /HPF (None Seen); WBC,URINE 0-2 /HPF (0-3)
[2022-08-05] MEDS ORDERED: IV NS 0.9% 1,000 ML BAG IV ONE
[2022-08-05] MEDS ORDERED: LIDOCAINE 2% JEL UROJET 10 ML MM ONE (00:14)
--- NOTE | 2022-08-05 00:25 | NUR ---
F/C 18FR INSERTED
--- NOTE | 2022-08-05 01:30 | NUR ---
IV removed. Catheter intact and site benign. Pressure and 4x4 applied to site. No bleeding noted.
--- NOTE | 2022-08-05 01:34 | NUR ---
Patient discharged to home in stable condition. Written and verbal after care instructions given. Patient verbalizes understanding of instruction.
[2022-08-05 01:41] VITALS: BP 138/84
== END 2022-08-05 01:43 | disposition home or self-care (01) ==
LOC: ER 22:26
DX: R33.9 Retention of urine, unspecified (principal); E78.5 Hyperlipidemia, unspecified; E78.00 Pure hypercholesterolemia, unspecified; Z79.899 Other long term (current) drug therapy; Z86.73 Personal history of transient ischemic attack (TIA), and cerebral infarction without residual deficits
CPT/HCPCS: 99284; 51702; 81001; J3490 ×2; J2270; J7030 ×2

== ENCOUNTER 2022-08-19 10:44 | Emergency (ER) | payer OTHER ==
[~2022-08-19] VITALS: Ht 165.1 cm; Wt 77.1 kg
--- NOTE | 2022-08-19 10:50 | NUR ---
PT REQUESTING GARCIA CATHETER REMOVAL THAT WAS PLACED 2 WEEKS AGO.
--- NOTE | 2022-08-19 10:52 | NUR ---
AT BEDSIDE FOR EVAL
--- NOTE | 2022-08-19 11:02 | NUR ---
GARCIA CATHETER REMOVED PER MD ORDER. PT TOLERATED WELL. NO HEMATURIA NOTED. NO C/O PAIN.
[2022-08-19 11:52] VITALS: BP 138/71
== END 2022-08-19 11:52 | disposition home or self-care (01) ==
LOC: ER 10:53
DX: T83.021A Displacement of indwelling urethral catheter, initial encounter (principal); I10 Essential (primary) hypertension; E78.5 Hyperlipidemia, unspecified; Z79.899 Other long term (current) drug therapy

== ENCOUNTER 2022-08-20 23:53 | Emergency (ER) | payer OTHER ==
[~2022-08-20] VITALS: Ht 165.1 cm; Wt 78.0 kg
[2022-08-21 00:33] VITALS: BP 123/82
--- NOTE | 2022-08-21 00:33 | NUR ---
BIBWIFE FROM HOME C/O URINARY RETENTION X3 HRS & LOWER ABD PAIN
[2022-08-21] MEDS ORDERED: LIDOCAINE 2% JEL UROJET 10 ML MM ONE ×2 (00:40→01:00)
--- NOTE | 2022-08-21 01:02 | NUR ---
18FR GARCIA CATHETER INSERTED DRAINING 400mL OF CLEAR YELLOW URINE.
[2022-08-21 01:34] LABS: BILIRUBIN,URINE NEGATIVE (NEGATIVE); COLOR,URINE YELLOW (YELLOW); LEUKOCYTE ESTERASE ,URINE NEGATIVE (NEGATIVE); NITRITE, URINE NEGATIVE (NEGATIVE); PROTEIN,URINE NEGATIVE (NEGATIVE); UGLUCOSE NEGATIVE (NEGATIVE); UROBILINOGEN,URINE 0.2 EU/dL (0.2)
[2022-08-21 01:35] LABS: BACTERIA,URINE Rare /HPF (None Seen); SQUAMOUS EPITHELIAL CELL,UR Few /HPF (None Seen); WBC,URINE 0-2 /HPF (0-3)
--- NOTE | 2022-08-21 01:48 | NUR ---
Patient discharged to home in stable condition. Written and verbal after care instructions given. Patient verbalizes understanding of instruction.
== END 2022-08-21 01:53 | disposition home or self-care (01) ==
LOC: ER 23:56
DX: R33.9 Retention of urine, unspecified (principal); Z86.73 Personal history of transient ischemic attack (TIA), and cerebral infarction without residual deficits; I10 Essential (primary) hypertension; E78.5 Hyperlipidemia, unspecified; E78.00 Pure hypercholesterolemia, unspecified; Z98.890 Other specified postprocedural states; Z79.899 Other long term (current) drug therapy
CPT/HCPCS: 99284; 51702; 81001; J3490

== ENCOUNTER 2023-08-31 18:17 | Emergency (ER) | payer MEDICARE, OTHER ==
[~2023-08-31] VITALS: Ht 152.4 cm; Wt 69.9 kg
[2023-08-31] MEDS ORDERED: KETOROLAC TROMETHAMINE 15 MG/ML VIAL ONE (19:18)
[2023-08-31] MEDS ORDERED: ACETAMINOPHEN ES 500 MG TABLET ONE ×2 (19:18→19:19)
[2023-08-31] MEDS: IV NS 0.9% 1,000 ML BAG IV ONE (19:25)
[2023-08-31] MEDS: ACETAMINOPHEN ES 500 MG TABLET PO ONE (19:26)
[2023-08-31] MEDS: KETOROLAC TROMETHAMINE 15 MG/ML VIAL IV ONE (19:26)
[2023-08-31 19:27] LABS: BASOPHILS % (AUTO) 0.1 % (0.0-2.0); EOSINOPHILS % (AUTO) 0.1 % (0.0-6.0); HEMATOCRIT 44 % (39-51); HEMOGLOBIN 14.9 g/dL (13.5-17.5); LYMPHOCYTES # (AUTO) 1.6 K/uL (0.8-4.8); LYMPHOCYTES % (AUTO) 6.7 % (20.0-44.0); MEAN CORPUSCULAR HEMOGLOBIN 29 PG (26.0-33.0); MEAN CORPUSCULAR HGB CONC 34 g/dl (31.0-36.0); MEAN CORPUSCULAR VOLUME 85 fL (80-96); MONOCYTES # (AUTO) 1.5 K/uL (0.1-1.30); MONOCYTES % (AUTO) 6.6 % (2.0-12.0); NEUTROPHILS # (AUTO) 20.3 K/uL (1.8-8.9); NEUTROPHILS % (AUTO) 86.5 % (43.0-81.0); PLATELET COUNT (AUTO) 201 K/uL (150-450); RED CELL DISTRIBUTION WIDTH 14.9 % (11.5-15.0); WHITE BLOOD COUNT (AUTO) 23.5 K/uL (4.3-11.0)
[2023-08-31 19:40] LABS: ALBUMIN 3.5 g/dL (3.4-5.0); BILIRUBIN,DIRECT 0.4 mg/dL (0.0-0.2); CALCIUM, SERUM 9.3 mg/dL (8.5-10.1); POTASSIUM 3.7 mmol/L (3.5-5.1); TOTAL PROTEIN, SERUM 7.7 g/dL (6.4-8.2)
[2023-08-31 19:56] LABS: APPEARANCE,URINE SLIGHTLY CLOUDY (CLEAR); BILIRUBIN,URINE NEGATIVE (NEGATIVE); BLOOD, URINE TRACE-INTA Ery/uL (NEGATIVE); COLOR,URINE YELLOW (YELLOW); KETONES,URINE 2+ mg/dL (NEGATIVE); LEUKOCYTE ESTERASE ,URINE 2+ (NEGATIVE); NITRITE, URINE NEGATIVE (NEGATIVE); PROTEIN,URINE 1+ mg/dl (NEGATIVE); UGLUCOSE NEGATIVE (NEGATIVE)
[2023-08-31 20:06] LABS: ADD URINE CULTURE YES; BACTERIA,URINE 2+ /HPF (None Seen); RBC,URINE 0-2 /HPF (0-2); WBC,URINE 21-50 /HPF (0-3)
[2023-08-31] MEDS ORDERED: CEFTRIAXONE 1GM BAG (ER ONLY) 50 ML IV ONE (20:29)
[2023-08-31] MEDS: CEFTRIAXONE 1GM BAG (ER ONLY) 1 GM/50 ML PIGGYBACK IV ONE (20:38)
[2023-08-31] MEDS ORDERED: CEPH500T PO (21:15)
[2023-08-31] MEDS ORDERED: IBUP-1953 PO (21:15)
[2023-08-31 21:37] VITALS: BP 132/71; TEMP 98.4; O2SAT 98
== END 2023-08-31 21:38 | disposition home or self-care (01) ==
LOC: ER 18:18
DX: N39.0 Urinary tract infection, site not specified (principal); I10 Essential (primary) hypertension; E78.5 Hyperlipidemia, unspecified; E78.00 Pure hypercholesterolemia, unspecified; Z86.73 Personal history of transient ischemic attack (TIA), and cerebral infarction without residual deficits; Z20.822 Contact with and (suspected) exposure to COVID-19
CPT/HCPCS: 99285; 74176; 96365; 71045; 96361; 96375; 87426; 85025; 80048; 83690; 80076; 81001; 36415; J7030; J0696; J1885

== ENCOUNTER 2023-12-17 21:26 | Emergency (ER) | payer MEDICARE, OTHER ==
[~2023-12-17 21:26] MED LIST changes: +CEPH500T PO; +IBUP-1953 PO
== END 2023-12-17 22:53 | disposition left against medical advice (07) ==
LOC: ER 21:41
DX: Z53.21 Procedure and treatment not carried out due to patient leaving prior to being seen by health care provider (principal)

== ENCOUNTER 2024-01-13 16:33 | Emergency (ER) | payer MEDICARE, OTHER ==
[~2024-01-13] VITALS: Ht 167.6 cm; Wt 74.4 kg
[2024-01-13 16:53] VITALS: TEMP 98.4
[2024-01-13] MEDS ORDERED: TETRAcaine 5 ML BOTTLE ONE (17:10)
[2024-01-13] MEDS: FLUORESCEIN SODIUM OPHTH 1 EA STRIP OP ONE (17:30)
[2024-01-13] MEDS: TETRAcaine 5 ML BOTTLE LEFTEYE ONE (17:30)
[2024-01-13] MEDS ORDERED: ERYT3.5O9 EACHEYE (18:16)
[2024-01-13 18:42] VITALS: BP 148/80; O2SAT 98
== END 2024-01-13 18:25 | disposition home or self-care (01) ==
LOC: ER 16:38
DX: T15.82XA Foreign body in other and multiple parts of external eye, left eye, initial encounter (principal); H57.12 Ocular pain, left eye; E78.00 Pure hypercholesterolemia, unspecified; I10 Essential (primary) hypertension; N40.0 Benign prostatic hyperplasia without lower urinary tract symptoms; Z79.01 Long term (current) use of anticoagulants; Z86.73 Personal history of transient ischemic attack (TIA), and cerebral infarction without residual deficits; Z87.448 Personal history of other diseases of urinary system; Z86.79 Personal history of other diseases of the circulatory system; W44.8XXA Other foreign body entering into or through a natural orifice, initial encounter; Y93.89 Activity, other specified; Y92.89 Other specified places as the place of occurrence of the external cause; Y99.8 Other external cause status

== ENCOUNTER 2024-06-05 17:50 | Inpatient (IN) | payer MEDICARE, OTHER ==
[~2024-06-05] VITALS: Ht 165.1 cm; Wt 78.9 kg
[~2024-06-05 17:50] MED LIST changes: +ERYT3.5O9 EACHEYE
[2024-06-05] MEDS ORDERED: IOHEXOL-350 100 ML VIAL IV ONE (18:20)
[2024-06-05] MEDS ORDERED: IV NS 0.9% 250 ML IV ONE (18:20)
[2024-06-05 18:28] LABS: BASOPHILS % (AUTO) 0.5 % (0.0-2.0); EOSINOPHILS # (AUTO) 0.5 K/uL (0.0-0.7); EOSINOPHILS % (AUTO) 6.7 % (0.0-6.0); HEMATOCRIT 46 % (39-51); HEMOGLOBIN 15.8 g/dL (13.5-17.5); LYMPHOCYTES # (AUTO) 3.3 K/uL (0.8-4.8); LYMPHOCYTES % (AUTO) 44.4 % (20.0-44.0); MEAN CORPUSCULAR HEMOGLOBIN 29 PG (26.0-33.0); MEAN CORPUSCULAR HGB CONC 35 g/dl (31.0-36.0); MEAN CORPUSCULAR VOLUME 85 fL (80-96); MONOCYTES # (AUTO) 0.6 K/uL (0.1-1.30); NEUTROPHILS % (AUTO) 40.4 % (43.0-81.0); PLATELET COUNT (AUTO) 212 K/uL (150-450); RED BLOOD CELL COUNT(AUTO) 5.42 MIL/uL (4.5-6.0); RED CELL DISTRIBUTION WIDTH 15.3 % (11.5-15.0); WHITE BLOOD COUNT (AUTO) 7.5 K/uL (4.3-11.0)
[2024-06-05 18:36] LABS: CALCIUM, SERUM 9.1 mg/dL (8.5-10.1); CARBON DIOXIDE 29 mmol/L (21-32); CHLORIDE 106 mmol/L (98-107); CREATININE 0.9 mg/dL (0.6-1.3); GLUCOSE 97 mg/dL (74-106); POTASSIUM 4.1 mmol/L (3.5-5.1); SODIUM SERUM 141 mmol/L (136-145); UREA NITROGEN, BLOOD 15 mg/dL (7-18)
[2024-06-05 18:42] LABS: PARTIAL THROMBOPLASTIN TIME 26.2 SEC (24.3-34.3); PROTHROMBIN TIME 10.6 SECS (9.2-11.1)
[2024-06-05] MEDS ORDERED: ASPIRIN 81 MG TAB.CHEW ONE (18:59)
[2024-06-05] MEDS ORDERED: CLOPIDOGREL BISULFATE 75 MG TABLET ONE (18:59)
[2024-06-05] MEDS: CLOPIDOGREL BISULFATE 75 MG TABLET PO ONE (19:01)
[2024-06-05] MEDS: ASPIRIN EC 81 MG TABLET.DR PO ONE (19:01)
[2024-06-05] MEDS ORDERED: OMEG1CAP76 PO (19:14)
[2024-06-05] MEDS ORDERED: ASCO-352 PO (19:14)
[2024-06-05] MEDS ORDERED: [UNRECOGNIZED DRUG - CODE] PO (19:14)
[2024-06-05] MEDS ORDERED: ATOR40TA PO (19:14)
[2024-06-05] MEDS ORDERED: CHOL100062 PO (19:14)
[2024-06-05] MEDS ORDERED: ACETAMINOPHEN 325 MG TABLET PO PRN (19:30)
[2024-06-05] MEDS ORDERED: ONDANSETRON HCL/PF 4 MG/2 ML VIAL IVP PRN (19:30)
[2024-06-05] MEDS ORDERED: MORPHINE SULFATE INJ 2 MG/ML DISP.SYRIN IV PRN (19:30)
[2024-06-05] MEDS ORDERED: hydrALAZINE HCL IV 20 MG VIAL IV PRN ×2 (19:30)
[2024-06-05 20:00] VITALS: BP 152/66; TEMP 97.9; O2SAT 100
[2024-06-05 20:10] LABS: APPEARANCE,URINE CLEAR (CLEAR); BILIRUBIN,URINE NEGATIVE (NEGATIVE); BLOOD, URINE NEGATIVE Ery/uL (NEGATIVE); COLOR,URINE YELLOW (YELLOW); KETONES,URINE NEGATIVE (NEGATIVE); LEUKOCYTE ESTERASE ,URINE NEGATIVE (NEGATIVE); NITRITE, URINE NEGATIVE (NEGATIVE); PROTEIN,URINE NEGATIVE (NEGATIVE); UGLUCOSE NEGATIVE (NEGATIVE); UROBILINOGEN,URINE 0.2 EU/dL (0.2)
[2024-06-05] MEDS: ATORVASTATIN 40 MG TABLET PO SCH (21:30)
[2024-06-06] VITALS: BP 125/72; TEMP 97.5; O2SAT 97
[2024-06-06 04:00] VITALS: BP 132/72; TEMP 97.5; O2SAT 97
[2024-06-06 06:56] LABS: ALBUMIN 3.4 g/dL (3.4-5.0); BILIRUBIN,TOTAL 0.3 mg/dL (0.2-1.0); CALCIUM, SERUM 8.5 mg/dL (8.5-10.1); CREATININE 0.8 mg/dL (0.6-1.3); MAGNESIUM 2.1 mg/dL (1.8-2.4); POTASSIUM 4.3 mmol/L (3.5-5.1); TOTAL PROTEIN, SERUM 6.9 g/dL (6.4-8.2)
[2024-06-06 06:59] LABS: CHOLESTEROL 214 mg/dL (<200); HDL CHOLESTEROL 44 mg/dL (40-60); LDL 154 mg/dL (0-99); TRIGLYCERIDES 103 mg/dL (30-150)
[2024-06-06 07:11] LABS: BASOPHILS % (AUTO) 0.5 % (0.0-2.0); EOSINOPHILS # (AUTO) 0.4 K/uL (0.0-0.7); EOSINOPHILS % (AUTO) 7.5 % (0.0-6.0); HEMATOCRIT 46 % (39-51); HEMOGLOBIN 15.4 g/dL (13.5-17.5); LYMPHOCYTES # (AUTO) 2.3 K/uL (0.8-4.8); LYMPHOCYTES % (AUTO) 38.5 % (20.0-44.0); MEAN CORPUSCULAR HEMOGLOBIN 28 PG (26.0-33.0); MEAN CORPUSCULAR HGB CONC 33 g/dl (31.0-36.0); MEAN CORPUSCULAR VOLUME 85 fL (80-96); MONOCYTES # (AUTO) 0.5 K/uL (0.1-1.30); MONOCYTES % (AUTO) 7.9 % (2.0-12.0); NEUTROPHILS # (AUTO) 2.7 K/uL (1.8-8.9); NEUTROPHILS % (AUTO) 45.6 % (43.0-81.0); PLATELET COUNT (AUTO) 204 K/uL (150-450); RED BLOOD CELL COUNT(AUTO) 5.46 MIL/uL (4.5-6.0); RED CELL DISTRIBUTION WIDTH 15.3 % (11.5-15.0); WHITE BLOOD COUNT (AUTO) 5.9 K/uL (4.3-11.0)
[2024-06-06 08:00] VITALS: BP 153/76; TEMP 97.7; O2SAT 99
[2024-06-06] MEDS: CLOPIDOGREL BISULFATE 75 MG TABLET PO SCH (08:17)
[2024-06-06] MEDS: ASPIRIN EC 81 MG TABLET.DR PO SCH (08:17)
[2024-06-06] MEDS: AMLODIPINE BESYLATE 2.5 MG TABLET PO SCH (09:00)
[2024-06-06] MEDS: APIXABAN 5 MG TABLET PO SCH (09:00)
[2024-06-06] MEDS ORDERED: CT SWABBABLE VALVE TRANS SET 1 EA INFUS.SET MC ONE (11:55)
[2024-06-06] MEDS ORDERED: IOHEXOL-350 100 ML VIAL IV ONE (11:55)
[2024-06-06] MEDS ORDERED: IV NS 0.9% 250 ML IV ONE (11:56)
[2024-06-06 12:00] VITALS: BP 146/77; TEMP 97.7; O2SAT 99
[2024-06-06 16:00] VITALS: BP 120/72; TEMP 98.1; O2SAT 98
[2024-06-06] MEDS ORDERED: ASPI-1169 PO (17:28)
[2024-06-06 18:03] LABS: THYROID STIMULATING HORMONE 1.9 uIU/mL (0.358-3.74)
== END 2024-06-06 18:05 | disposition home health service (06) | DRG 69 ==
LOC: ER 17:57 → TELE1 19:31 → TELE-TD 20:36 → TELE1 06-06 09:22
PROVIDERS: ADMIT Internal Medicine; ATTEND Nurse Practitioner Acute Care
DX: G45.9 Transient cerebral ischemic attack, unspecified (principal); I21.A1 Myocardial infarction type 2; I25.10 Atherosclerotic heart disease of native coronary artery without angina pectoris; Z95.5 Presence of coronary angioplasty implant and graft; I11.0 Hypertensive heart disease with heart failure; I50.9 Heart failure, unspecified; R29.700 NIHSS score 0; Z79.01 Long term (current) use of anticoagulants; Z79.82 Long term (current) use of aspirin; Z86.73 Personal history of transient ischemic attack (TIA), and cerebral infarction without residual deficits; Z87.891 Personal history of nicotine dependence; R00.1 Bradycardia, unspecified; E78.5 Hyperlipidemia, unspecified; N40.0 Benign prostatic hyperplasia without lower urinary tract symptoms
CPT/HCPCS: 36415; 70450-TC; 70496-TC; 70498-TC; 70551-TC; 75574; 80048-TC; 80053-TC; 80061-TC; 82607-TC; 83735-TC; 83921; 84100-TC; 84425; 84443-TC; 84484-TC; 85025-TC; 85730-TC; 92507-TC; 92521; 93307-TC; 97116-TC; 97530-TC; G0378; J7050; Q9967

== ENCOUNTER 2024-10-02 17:42 | Emergency (ER) | payer MEDICARE, OTHER ==
[~2024-10-02] VITALS: Ht 165.1 cm; Wt 77.1 kg
[~2024-10-02 17:42] MED LIST changes: +ASCO-352 PO; +ASPI-1169 PO; +ATOR40TA PO; -CEPH500T PO; +CHOL100062 PO; -ERYT3.5O9 EACHEYE; -EZET10TA32 PO; -FINA5TAB11 PO; -IBUP-1953 PO; -MERO1VIA23 IV; -METO25TA20 PO; +OMEG1CAP76 PO; -ROSU5TAB13 PO; -Tamsulosin PO
[2024-10-02 17:50] VITALS: O2SAT 100
[2024-10-02] MEDS ORDERED: CEPH-570 PO (21:31)
[2024-10-02 21:41] VITALS: BP 122/72; TEMP 97.8; O2SAT 100
== END 2024-10-02 21:40 | disposition home or self-care (01) ==
LOC: ER 17:54
DX: S91.332A Puncture wound without foreign body, left foot, initial encounter (principal); I10 Essential (primary) hypertension; E78.00 Pure hypercholesterolemia, unspecified; Z79.01 Long term (current) use of anticoagulants; Z79.82 Long term (current) use of aspirin; Z86.73 Personal history of transient ischemic attack (TIA), and cerebral infarction without residual deficits; Z79.899 Other long term (current) drug therapy
CPT/HCPCS: 73630-TC